=== PATIENT | male | born 1960 | race Caucasian/White ===

== ENCOUNTER 2019-11-19 07:40 | Outpatient (CLI) | payer OTHER, SELFPAY ==
[2019-11-19 08:18] LABS: Alanine Aminotransferase 85 U/L (4-50); Albumin Level 4.4 g/dL (3.5-5.1); Alkaline Phosphatase 63 U/L (38-126); Aspartate Amino Transferase 51 U/L (17-59); Bilirubin,Total 0.8 mg/dL (0.2-1.3); Blood Urea Nitrogen 22 mg/dL (9-20); Calcium 8.9 mg/dL (8.4-10.2); Carbon Dioxide 24 mmol/L (22-30); Chloride 105 mmol/L (98-107); Cholesterol 171 mg/dL (0-200); Estimated Glomerular Filt Rate > 60; Glucose 129 mg/dL (75-110); HDL Direct 34 mg/dL; Potassium 3.8 mmol/L (3.4-5.0); Sodium 138 mmol/L (137-145); Triglycerides 147 mg/dL (<150)
[2019-11-19 08:29] LABS: LDL Cholesterol Direct 94 mg/dL
[2019-11-19 08:57] LABS: Hemoglobin A1C 5.9 % (<5.7)
== END 2019-11-19 07:41 | disposition home or self-care (01) ==
PROVIDERS: PCP Internal Medicine; Visit Provider Internal Medicine
DX: E78.5 Hyperlipidemia, unspecified (principal); I10 Essential (primary) hypertension; K76.0 Fatty (change of) liver, not elsewhere classified; E11.9 Type 2 diabetes mellitus without complications
CPT/HCPCS: 36415; 80053; 80061; 83036

== ENCOUNTER 2020-06-23 08:25 | Outpatient (CLI) | payer OTHER, SELFPAY ==
--- NOTE | ~2020-06-23 | XR_ITS ---
EXAMINATION: XR knee LT 3V DATE: 06/23/2020 11:17 INDICATION: Left knee pain. TECHNIQUE: 3 views of left knee were obtained. COMPARISON: Left knee radiographs 05/29/2018 FINDINGS: Bone alignment is normal. No fracture. There is mild tricompartmental osteoarthritis. There is a small knee joint effusion. IMPRESSION: 1. Mild left knee osteoarthritis. 2. Small left knee joint effusion. Reviewed, dictated and finalized at location A. ECTIONAL TREATMENT SPECIALIST
--- NOTE | ~2020-06-23 | XR_ITS ---
EXAMINATION: XR knee RT 3V DATE: 06/23/2020 11:17 INDICATION: Right knee pain. TECHNIQUE: 3 views of right knee were obtained. COMPARISON: None. FINDINGS: Bone alignment is normal. No fracture. There is mild osteoarthritis of medial and patellofe moral compartments. There is a small knee joint effusion. IMPRESSION: 1. Mild right knee osteoarthritis. 2. Small right knee joint effusion. Reviewed, dictated and finalized at location A. SITIONS RN CARE COORDINATOR
[2020-06-23 08:58] LABS: Alanine Aminotransferase 64 U/L (4-50); Albumin Level 4.3 g/dL (3.5-5.1); Alkaline Phosphatase 59 U/L (38-126); Anion Gap 6 mmol/L (8-16); Aspartate Amino Transferase 40 U/L (17-59); Bilirubin,Total 0.7 mg/dL (0.2-1.3); Blood Urea Nitrogen 17 mg/dL (9-20); Calcium 8.9 mg/dL (8.4-10.2); Carbon Dioxide 28 mmol/L (22-30); Chloride 107 mmol/L (98-107); Cholesterol 178 mg/dL (0-200); Estimated Glomerular Filt Rate > 60; Glucose 116 mg/dL (75-110); HDL Direct 38 mg/dL; Potassium 4.6 mmol/L (3.4-5.0); Sodium 141 mmol/L (137-145); Triglycerides 162 mg/dL (<150)
[2020-06-23 09:09] LABS: LDL Cholesterol Direct 98 mg/dL
[2020-06-23 11:49] LABS: Hemoglobin A1C 5.5 % (<5.7)
== END 2020-06-23 08:26 | disposition home or self-care (01) ==
PROVIDERS: PCP Internal Medicine; Visit Provider Nurse Practitioner
DX: M25.569 Pain in unspecified knee (principal); G89.29 Other chronic pain; E78.00 Pure hypercholesterolemia, unspecified; R73.9 Hyperglycemia, unspecified
CPT/HCPCS: 36415; 73562; 80053; 80061; 83036

== ENCOUNTER 2021-01-24 11:52 | Outpatient (CLI) | payer OTHER, SELFPAY ==
[2021-01-24 12:29] LABS: Alanine Aminotransferase 90 U/L (4-50); Albumin Level 4.6 g/dL (3.5-5.1); Alkaline Phosphatase 64 U/L (38-126); Anion Gap 8 mmol/L (8-16); Aspartate Amino Transferase 49 U/L (17-59); Bilirubin,Total 0.8 mg/dL (0.2-1.3); Blood Urea Nitrogen 18 mg/dL (9-20); Calcium 9.2 mg/dL (8.4-10.2); Carbon Dioxide 26 mmol/L (22-30); Chloride 108 mmol/L (98-107); Cholesterol 191 mg/dL (0-200); Estimated Glomerular Filt Rate > 60; Glucose 100 mg/dL (65-110); HDL Direct 40 mg/dL; Potassium 4.2 mmol/L (3.4-5.0); Sodium 142 mmol/L (137-145); Triglycerides 218 mg/dL (<150)
[2021-01-24 12:32] LABS: Hemoglobin A1C 5.7 % (<5.7)
[2021-01-24 12:40] LABS: LDL Cholesterol Direct 89 mg/dL
[2021-01-24 12:59] LABS: Prostate Specific Antigen 31.5 ng/mL (< OR = 4.0)
== END 2021-01-24 11:53 | disposition home or self-care (01) ==
PROVIDERS: PCP Internal Medicine; Visit Provider Internal Medicine
DX: Z12.5 Encounter for screening for malignant neoplasm of prostate (principal); K76.0 Fatty (change of) liver, not elsewhere classified; R73.9 Hyperglycemia, unspecified; E78.5 Hyperlipidemia, unspecified
CPT/HCPCS: 36415; 80053; 80061; 83036; 84153; G0103

== ENCOUNTER → 2021-03-20 04:03 | Outpatient (CLI) | payer OTHER, SELFPAY ==
[2021-03-20 17:24] LABS: SARS-CoV-2 RNA PCR Negative
== END ==
PROVIDERS: PCP Internal Medicine; Visit Provider Internal Medicine Gastroenterology
DX: Z01.812 Encounter for preprocedural laboratory examination (principal); Z20.822 Contact with and (suspected) exposure to COVID-19
CPT/HCPCS: C9803; U0003; U0005

== ENCOUNTER 2021-03-23 02:00 | Day surgery (SDC) | payer OTHER, SELFPAY ==
[2021-03-09 13:15] VITALS: BMI 30.8
[2021-03-23 06:17] VITALS: BP 140/86; PULSE 70; RESP 18; TEMP 35.8; O2SAT 98
[2021-03-23] MEDS: LACTATED RINGERS 1,000 ML 150 ML IV CONT (06:25)
--- NOTE | 2021-03-23 06:47 | WPDANESEPPF ---
Anes - Initial Pre Proc Eval Procedure: Operation Date: 03/23/21 07:30 Proposed Procedures p Screening Colonoscopy - Howie Brown MD Date/Time: 03/23/21 06:47 Surgeon: Howie Brown MD Pre Op Diagnosis: hx of colon polyps Patient Data Age: 60 Gender: M Height: 1.85 m Weight: 105.3 kg Last Vital Signs Temp 35.8 C L 03/23/21 06:17 Pulse 70 03/23/21 06:17 Resp 18 03/23/21 06:17 BP 140/86 03/23/21 06:17 Pulse Ox 98 03/23/21 06:17 Allergies Allergy/AdvReac Type Severity Reaction Status Date / Time No Known Allergies Allergy Mild Verified 03/23/21 06:15 Home Medications Medication Instructions Recorded Confirmed Type etodolac 400 mg tablet 400 mg PO BID #180 tablet 01/26/21 03/23/21 Rx Patient hx anesthesia problems: none Family hx anesthesia problems: none Results Review: All pre-operative results and documents have been reviewed as part of the pre-operative evaluation. [facility] Past Medical History Medical History Benign prostatic hyperplasia without lower urinary tract symptoms Bilateral hearing loss Elevated PSA Essential (primary) hypertension Fatty (change of) liver, not elsewhere classified Hearing loss Hyperglycemia Knee joint effusion Knee pain, chronic Left knee DJD Patellar tendinitis of left knee Pure hypercholesterolemia Right knee DJD Type 2 diabetes mellitus without complication, without long-term current use of insulin Wears glasses Surgical History Surgical History History of ear surgery 1979' History of umbilical hernia repair 1959 Family History Family History Mother Family history of malignant neoplasm of breast in first degree relative Sibling Patient's sister is in good health Patient's brother is in good health Father Patient's father is Social History Social History Smoking packs per day: 1 Smoking cigarettes per day: 20.0 Years smoked: 23 Smoking pack-years: 23.00 Smoking status: Former smoker Tobacco type: cigarettes Smoking end date: 05/16/05 Alcohol intake: current Drinks per week: 1 Substance use: never Substance use type: does not use Living arrangements: with family Gender identity (if verbalized by the patient): Male Spiritual care concerns: No Anes - Eval Final PreProcedure Day of Procedure 03/23/21 06:47 Patient weight: obese Heart: regular rate and rhythm Lungs: clear to auscultation Airway: Mallampati scale class II Neurological: alert and oriented Last oral intake: >/= 8 hours ASA classification: III Emergent: no Anesthetic plan: proceed Anesthesia type and monitoring: general Results Review: All pre-operative results and documents have been reviewed as part of the pre-operative evaluation. Informed Consent: The patient's anesthetic plan and its attendant risks and benefits were discussed with the patient/family/POA. Questions were solicited and answers provided to the satisfaction of the patient/family/POA.
--- NOTE | 2021-03-23 07:21 | WPDGICN ---
Assessment and Plan Assessment and plan (1) History of colon polyps: Code(s): Z86.010 - Personal history of colonic polyps Status: Acute Assessment and Plan: Patient has a prior history of colon polyps. Last colonoscopy 2014. Plan is for surveillance colonoscopy now and at 5 year intervals in the future. GI Consult Note Consult date/time: 03/23/21 07:21 HPI: Rolf Freitas is a 60 year old male Presents for screening colonoscopy. Patient has a prior history of colon polyps previous colonoscopy 2014 and 2005. Patient states that his current weight and appetite are normal. He denies abdominal pain. He has had no bleeding. Family history is noncontributory. Review of Systems Review of Systems: All systems reviewed & are unremarkable except as noted in HPI and below PMFSH Past Medical History Medical History Benign prostatic hyperplasia without lower urinary tract symptoms Bilateral hearing loss Elevated PSA Essential (primary) hypertension Fatty (change of) liver, not elsewhere classified Hearing loss Hyperglycemia Knee joint effusion Knee pain, chronic Left knee DJD Patellar tendinitis of left knee Pure hypercholesterolemia Right knee DJD Type 2 diabetes mellitus without complication, without long-term current use of insulin Wears glasses Surgical History Surgical History History of ear surgery History of umbilical hernia repair 1959 Family History Family History Mother Family history of malignant neoplasm of breast in first degree relative Sibling Patient's sister is in good health Patient's brother is in good health Father Patient's father is Social History Social History Smoking packs per day: 1 Smoking cigarettes per day: 20.0 Years smoked: 23 Smoking pack-years: 23.00 Smoking status: Former smoker Tobacco type: cigarettes Smoking end date: 05/16/05 Alcohol intake: current Drinks per week: 1 Substance use: never Substance use type: does not use Living arrangements: with family Gender identity (if verbalized by the patient): Male Spiritual care concerns: No Meds Home Medications and Allergies Home Medications Medication Instructions Recorded Confirmed Type etodolac 400 mg tablet 400 mg PO BID #180 tablet 01/26/21 03/23/21 Rx Allergies Allergy/AdvReac Type Severity Reaction Status Date / Time No Known Allergies Allergy Mild Verified 03/23/21 06:15 Vital Signs Vital Signs - 24 hr 03/23/21 06:17 Temperature 96.4 F L Pulse Rate 70 Respiratory Rate 18 Blood Pressure 140/86 Pulse Oximetry 98 Exam Narrative: Physical exam reveals patient be alert. Vital signs stable. HEENT exam is unremarkable. Patient is anicteric. Lungs are clear to auscultation and percussion. Heart is without murmur. Abdomen bowel sounds present soft nontender with no organomegaly. Digital external rectal exam normal.
[2021-03-23 07:52] VITALS: BP 118/82; PULSE 61; RESP 18; O2SAT 96
[2021-03-23 08:02] VITALS: BP 117/79; PULSE 63; RESP 18; O2SAT 99
[2021-03-23 08:08] VITALS: BP 107/77; PULSE 64; RESP 18; O2SAT 96
== END 2021-03-23 08:22 | disposition home or self-care (01) ==
PROVIDERS: PCP Internal Medicine; Visit Provider Internal Medicine Gastroenterology
PROC: 0DJD8ZZ Inspection of Lower Intestinal Tract, Via Natural or Artificial Opening Endoscopic (ICD-10-PCS; CPT 45378; principal; 2021-03-23 07:30)
DX: Z12.11 Encounter for screening for malignant neoplasm of colon (principal); D12.2 Benign neoplasm of ascending colon; D12.4 Benign neoplasm of descending colon; K63.5 Polyp of colon; I10 Essential (primary) hypertension; K76.0 Fatty (change of) liver, not elsewhere classified; E78.00 Pure hypercholesterolemia, unspecified; E11.9 Type 2 diabetes mellitus without complications; N40.0 Benign prostatic hyperplasia without lower urinary tract symptoms; Z87.891 Personal history of nicotine dependence; E66.9 Obesity, unspecified; Z68.30 Body mass index [BMI] 30.0-30.9, adult; K64.8 Other hemorrhoids; K57.30 Diverticulosis of large intestine without perforation or abscess without bleeding
CPT/HCPCS: 45385; 88305; C9803; J2704; J7120; U0003; U0005

== ENCOUNTER 2021-06-19 09:27 | Outpatient (CLI) | payer OTHER, SELFPAY ==
--- NOTE | ~2021-06-19 | XR_ITS ---
XR chest 2V DATE: 06/19/2021 09:49 INDICATION: Cough. History of Covid infection. TECHNIQUE: PA and lateral views COMPARISON: None FINDINGS: Normal heart size. No hilar or mediastinal enlargement. No pleural effusion or pneumothorax . There are scattered bilateral mid and lower lung mild patchy infiltrates. There is mild levoscoliosis of the upper thoracic spine. Included skeletal structures are otherwise u nremarkable. IMPRESSION: Scattered mild patchy bilateral mid and lower lung infiltrates which may be due to mild b ilateral pneumonia Reviewed, dictated and finalized at location B. OGY TUTOR IMPRESSION: Scattered mild patchy bilateral mid and lower lung infiltrates whic h may be due to mild bilateral pneumonia
== END 2021-06-19 09:28 | disposition home or self-care (01) ==
PROVIDERS: PCP Internal Medicine; Visit Provider Internal Medicine
DX: R05.9 Cough, unspecified (principal); M41.9 Scoliosis, unspecified
CPT/HCPCS: 71046

== ENCOUNTER 2021-07-20 09:53 | Outpatient (CLI) | payer OTHER, SELFPAY ==
--- NOTE | 2021-07-20 08:33 | EST_ITS ---
Patient Info Name: Rolf Freitas Age: 60 years : 1960 Gender: Male Ht: 73 in Wt: 226 lbs BSA: 2.32 m2 Technical Quality: Good Exam Date: 07/20/2021 9:07 AM Exam Location: [facility] Pulmonary Patient Status: Outpatient Admit Date: 07/20/2021 Staff Ordering Physician: Bandar Carrillo DO Continuity Writer: Carolyn Mcclellan RDCS Attending Provider: DR. PELLETIER Referring Physician: Lorena FERRARO; Exercise Technologist: Chasity Hutchins CT Exercise Physician: Nikko Pelletier DO Exam Type: CA stress echo Study Info Indications R07.9 - Chest pain, unspecified Treadmill exercise stress echocardiogram is performed. Summary 1. 1. Negative Cristofer exercise stress test for ischemic ST changes by ECG criteria. 2. 2. Good functional capacity, achieving 10 METs of workload. 3. 3. Baseline hypertension. 4. 4. Appropriate HR response to exercise. 5. 5. Appropriate HR recovery at 1 minute post exercise. 6. 6. Negative stress echocardiogram for ischemia by wall motion analysis. 7. 7. Patient informed of the above results. Stress Echo Findings Left Ventricle Appropriate increase in LV endocardial thickening with systole. Appropriate augmentation of contractility with systole. No wall motion abnormality. Left Ventricle Normal LV systolic function, no wall motion abnormality. Protocol: Cristofer Stress ECG Details Stage: REST Duration (min): 0 min : 51 sec Speed (mph): 0.0 Grade (%): 0 HR (bpm): 76 SBP (mmHg): 146 DBP (mmHg): 99 METS: --- Stage: REST Duration (min): 21 min : 59 sec Speed (mph): 0.0 Grade (%): 0 HR (bpm): 79 SBP (mmHg): 146 DBP (mmHg): 99 METS: --- Stage: STAGE 1 Duration (min): 1 min : 0 sec Speed (mph): 1.7 Grade (%): 10 HR (bpm): 95 SBP (mmHg): 146 DBP (mmHg): 99 METS: --- Stage: STAGE 1 Duration (min): 2 min : 0 sec Speed (mph): 1.7 Grade (%): 10 HR (bpm): 97 SBP (mmHg): 146 DBP (mmHg): 99 METS: --- Stage: STAGE 1 Duration (min): 3 min : 0 sec Speed (mph): 1.7 Grade (%): 10 HR (bpm): 100 SBP (mmHg): 148 DBP (mmHg): 83 METS: --- Stage: STAGE 2 Duration (min): 1 min : 0 sec Speed (mph): 2.5 Grade (%): 12 HR (bpm): 106 SBP (mmHg): 148 DBP (mmHg): 83 METS: --- Stage: STAGE 2 Duration (min): 2 min : 0 sec Speed (mph): 2.5 Grade (%): 12 HR (bpm): 111 SBP (mmHg): 147 DBP (mmHg): 80 METS: --- Stage: STAGE 2 Duration (min): 3 min : 0 sec Speed (mph): 2.5 Grade (%): 12 HR (bpm): 114 SBP (mmHg): 147 DBP (mmHg): 80 METS: --- Stage: STAGE 3 Duration (min): 1 min : 0 sec Speed (mph): 3.4 Grade (%): 14 HR (bpm): 125 SBP (mmHg): 151 DBP (mmHg): 83 METS: --- Stage: STAGE 3 Duration (min): 2 min : 0 sec Speed (mph): 3.4 Grade (%): 14 HR (bpm): 134 SBP (mmHg): 151 DBP (mmHg): 83 METS: --- Stage: STAGE 3 Duration (min): 3 min : 0 sec
[2021-07-20 10:23] LABS: Alanine Aminotransferase 46 U/L (4-50); Albumin Level 4.8 g/dL (3.5-5.1); Alkaline Phosphatase 66 U/L (38-126); Anion Gap 12 mmol/L (8-16); Aspartate Amino Transferase 38 U/L (17-59); Bilirubin,Total 0.7 mg/dL (0.2-1.3); Blood Urea Nitrogen 14 mg/dL (9-20); Calcium 9.1 mg/dL (8.4-10.2); Carbon Dioxide 23 mmol/L (22-30); Chloride 105 mmol/L (98-107); Cholesterol 191 mg/dL (0-200); Estimated Glomerular Filt Rate > 60; Glucose 134 mg/dL (65-110); HDL Direct 38 mg/dL; Hemoglobin A1C 5.3 % (<5.7); Potassium 4.6 mmol/L (3.4-5.0); Sodium 140 mmol/L (137-145); Triglycerides 179 mg/dL (<150)
[2021-07-20 10:34] LABS: LDL Cholesterol Direct 95 mg/dL
== END 2021-07-20 09:54 | disposition home or self-care (01) ==
PROVIDERS: PCP Internal Medicine; Visit Provider Internal Medicine
DX: R07.89 Other chest pain (principal); R73.03 Prediabetes; I10 Essential (primary) hypertension; K76.0 Fatty (change of) liver, not elsewhere classified; E78.5 Hyperlipidemia, unspecified
CPT/HCPCS: 36415; 80053; 80061; 83036; 93351

== ENCOUNTER 2021-08-17 14:40 | Outpatient (CLI) | payer OTHER, SELFPAY ==
--- NOTE | ~2021-08-17 | PE_ITS ---
EXAMINATION: PET_PETPSMAST_PT DATE: 08/17/2021 17:18 INDICATION: Prostate cancer TECHNIQUE: 9.142 mCi of pipflufolastat F-18 (18-F-DCFPyL) was administered i.v. Low dose computed to mography (CT) images were acquired from the base of the brain to the proximal thighs for attenuation correction and anatomic localization. Positron emission tomography (PET) images were acquired in the same distribution beginning 67 minutes after injection. COMPARISON: None FINDINGS: Head/neck: Typical pattern of symmetric physiologic increased activity in the lacrimal, parotid and s ubmandibular glands levels on the mucosa of the oropharynx and nasopharynx. No pathologically enlarge d cervical lymphadenopathy or suspicious foci of increased uptake in the visualized head or neck. Chest: Mild emphysema. Mild dependent atelectasis as well as a band of more linear discoid atelectasis at th e lingula. No suspicious pulmonary nodules, pneumonia or other pulmonary infiltrates or pleural effus ion. Heart size is normal. No pericardial effusion. Thoracic aorta is normal in caliber. A couple uli cified mediastinal lymph nodes consistent with old granulomatous disease. Minimal likely salivary act ivity extending along the esophagus. No pathologically enlarged lymphadenopathy or abnormal PSMA avid lesions in the thorax. Abdomen/pelvis/proximal thighs: Physiologic renal accumulation and excretion of FDG activity in the kidneys, bladder and along portio ns of ureters. Normal degree and heterogenous pattern of increased uptake throughout the liver and sp guille without radiologic correlate or dominant PSMA avid lesion. The gallbladder, pancreas, and bilate ral adrenal glands are normal. Moderate uptake scattered throughout the segments of the bowels most p rominent in the duodenum without radiologic correlate, also likely physiologic. Relatively intense PS MA uptake in the prostate with 2 epicenters likely within the transitional zone more cephalad on the right with maximal SUV of 15.0 and more caudally on the left with maximal SUV of 14.8. There is an ad ditional small focus of increased activity at the medial aspect of the left seminal vesicle with maxi mal SUV of 11.8 without clearly evident radiologic correlate suspicious for local invasion. No other abnormal foci of increased PSMA uptake or pathologically enlarged lymphadenopathy in the abdomen, pel vis or proximal thighs. Musculoskeletal: No suspicious lytic, blastic or PSMA avid bone lesions identified. IMPRESSION: 1. Relatively intense increased uptake in the prostate consistent with primary prostate cancer with l randalely local invasion in the medial aspect of the left seminal vesicle. No evident more widespread met astatic disease. Reviewed, dictated and finalized at location B. IMPRESSION: 1. Relatively intense increased uptake in the prostate consistent with primary prostate cancer with likely local invasion in the medial aspect of the left kaci inal vesicle. No evident more widespread metastatic disease.
== END 2021-08-17 14:41 | disposition home or self-care (01) ==
LOC: ANHIMG 14:41
PROVIDERS: PCP Internal Medicine; Visit Provider Nurse Practitioner Adult Health
DX: C61 Malignant neoplasm of prostate (principal)
CPT/HCPCS: 78815; A9595

== ENCOUNTER 2021-10-19 09:50 | Outpatient (CLI) | payer OTHER, SELFPAY ==
--- NOTE | ~2021-10-19 | XR_ITS ---
EXAMINATION: XR chest 2V 10/19/2021 12:03 INDICATION: Malignant neoplasm of the prostate. PROCEDURE: 2 view chest COMPARISON: 06/19/2021 FINDINGS: The lungs are clear. The cardiomediastinal silhouette is within normal limits. There are no pleural effusions. There is no pneumothorax suspected. IMPRESSION: 1: NO ACUTE CARDIOPULMONARY DISEASE. Reviewed, dictated and finalized at location B.
[2021-10-19 12:14] LABS: Basophils Percent Auto 0.7 % (0.2-1.2); Eosinophils Absolute Auto 0.1 K/mm3 (0-0.3); Eosinophils Percent Auto 2.1 % (0-4.4); Hematocrit 46.5 % (42.0-52.0); Hemoglobin 16.5 g/dL (14.0-18.0); Immature Granulocyte Absolute 0.02 K/mm3 (0.00-0.031); Immature Granulocyte Percent A 0.3 % (0-0.5); Lymphocytes Absolute Auto 2.15 K/mm3 (0.9-3.2); Lymphocytes Percent Auto 35.5 % (18.3-44.2); Mean Corpuscular HGB Conc 35.5 g/dl (32-36); Mean Corpuscular Hemoglobin 31.5 pg (26-34); Mean Corpuscular Volume 88.9 fl (80-100); Mean Platelet Volume 9.7 fl (7.4-10.4); Monocytes Absolute Auto 0.5 K/mm3 (0.1-0.6); Monocytes Percent Auto 8.9 % (2.6-8.5); Neutrophils Absolute Auto 3.2 K/mm3 (1.3-6.7); Neutrophils Percent Auto 52.5 % (45.5-73.1); Platelet Count Result 170 k/mm3 (150-375); Red Blood Count 5.23 M/mm3 (4.6-6.20); Red Cell Distribution Width 12.9 % (11.5-14.5); White Blood Count 6.1 K/mm3 (4.5-10.0)
[2021-10-19 12:24] LABS: Appearance Urine Clear (Clear); Bilirubin Urine Negative (Negative); Blood Urine Negative (Negative); Color Urine Yellow (Yellow); Glucose Urine UA Negative (Negative); Ketones Urine Negative (Negative); Leukocyte Esterase Ur Negative LEU/UL (Negative); Nitrate Urine Negative (Negative); Protein Urine Trace mg/dL (Negative); Specific Grav Ur >= 1.030 (1.001-1.035); Urobilinogen Urine 0.2 mg/dL (<2.0); pH Urine 5.5 (5.0-9.0)
[2021-10-19 12:26] LABS: Prothrombin Time 13.1 Seconds (11.1-14.7)
[2021-10-19 12:27] LABS: Partial Thromboplastin Time 31.9 SECONDS (22.3-36.8)
[2021-10-19 12:30] LABS: Bacteria Urine Trace /hpf; Mucus Urine Few /lpf; WBC Urine 0-3 /hpf
[2021-10-19 12:32] LABS: Add Urine Microscopic? YES
[2021-10-19 12:40] LABS: Alanine Aminotransferase 63 U/L (6-50); Alkaline Phosphatase 63 U/L (38-126); Anion Gap 9 mmol/L (8-16); Aspartate Amino Transferase 38 U/L (17-59); Blood Urea Nitrogen 22 mg/dL (9-20); Calcium 9.3 mg/dL (8.4-10.2); Carbon Dioxide 28 mmol/L (22-30); Chloride 104 mmol/L (98-107); Estimated Glomerular Filt Rate > 60; Glucose 108 mg/dL (65-110); Potassium 4.3 mmol/L (3.4-5.0); Sodium 141 mmol/L (137-145)
== END 2021-10-19 09:51 | disposition home or self-care (01) ==
PROVIDERS: PCP Internal Medicine; Visit Provider Urology
DX: C61 Malignant neoplasm of prostate (principal); Z01.818 Encounter for other preprocedural examination
CPT/HCPCS: 36415; 71046; 80053; 81001; 85025; 85610; 85730

== ENCOUNTER 2021-11-05 00:25 | Day surgery (SDC) | payer OTHER, SELFPAY ==
--- NOTE | 2021-10-05 07:54 | PM.IMHP ---
H&P: HPI History of Present Illness Date/Time: 10/05/21 07:54 Patient is a 61-year-old male we have followed for several years with an elevated PSA. He underwent prostate biopsy in September 2018 that was unremarkable. Because a PSA progression and an abnormal MRI of the prostate he recently underwent rebiopsy and was found to have Chitra 8 adenocarcinoma 6,7,8 and 9 in 7/14 cores (including 2 regions of interest on MRI). Staging PET scan reveals uptake in the prostate and possibly in the left seminal vesicle. We have had long discussions and careful consideration about the therapeutic options including active surveillance, androgen ablation, radiation therapy in its various forms and radical prostatectomy. He has opted for the latter Understanding the risks including, but not limited to, and a persistent cancer, need for adjuvant therapy, rectal injury, urinary incontinence, erectile dysfunction. He is also aware that there is a chance we may not be able to complete this surgery given the concerns of invasion into the seminal vesicle. We have started him on preoperative adjuvant androgen deprivation. Chief Complaint: Prostate cancer Review of Systems Cardiovascular: Cardiovascular: Denies chest pain, Denies lightheadedness, Denies palpitations and Denies dyspnea Respiratory: Respiratory: Denies dyspnea Gastrointestinal: Gastrointestinal: Denies diarrhea, Denies nausea and Denies vomiting Genitourinary: Genitourinary: Denies hematuria and Denies dysuria Endocrine: Endocrine: Denies palpitations PMFSH Past Medical History Medical History Benign prostatic hyperplasia without lower urinary tract symptoms Bilateral hearing loss Cancer of prostate with intermediate recurrence risk, stage T2B-C or Chitra 7 or prostate-specific antigen (PSA) 10-20 Elevated PSA Essential (primary) hypertension Fatty (change of) liver, not elsewhere classified Hearing loss Hyperglycemia Knee joint effusion Knee pain, chronic Left knee DJD Patellar tendinitis of left knee Pure hypercholesterolemia Right knee DJD Type 2 diabetes mellitus without complication, without long-term current use of insulin Wears glasses Surgical History Surgical History History of ear surgery 1979's History of umbilical hernia repair 1960 Family History Family History Mother Family history of malignant neoplasm of breast in first degree relative Sibling Patient's sister is in good health Patient's brother is in good health Father Patient's father is Social History Social History Smoking packs per day: 1 Smoking cigarettes per day: 20.0 Years smoked: 23 Smoking pack-years: 23.00 Smoking status: Former smoker Tobacco type: cigarettes Smoking end date: 05/16/05 Alcohol intake: current Drinks per week: 1 Substance use: never Substance use type: does not use Gender identity (if verbalized by the patient): Male Spiritual care concerns: No Meds Home Medications and Allergies Home Medications Medication Instructions Recorded Confirmed Type etodolac 400 mg tablet 400 mg PO BID #180 tablet 01/26/21 07/27/21 Rx Allergies Allergy/AdvReac Type Severity Reaction Status Date / Time No Known Allergies Allergy Mild Verified 07/27/21 07:59 Exam Const: General: no acute distress Resp: Effort & Inspection: normal respiratory effort GI: Inspection: non-distended GI Palp: No abdominal tenderness and No Guarding due to palpation present (GI) Auscultation: normal bowel sounds Assessment and Plan Assessment and plan (1) Prostate cancer: Code(s): C61 - Malignant neoplasm of prostate Status: Acute Assessment and Plan: Robotic assisted radical prostatectomy with bi
[2021-10-19 10:51] VITALS: BMI 31.2
--- NOTE | 2021-10-19 11:11 | PC.NURSE ---
Report to the Outpatient Waiting Room, entrance under the green pavilion located off [facility], at time _0600 on date _11/05/21 . OR Time: __729 . - You and your visitor will be asked a series of questions to screen for COVID 19 for your protection. - Only one visitor is allowed at this time. - The patient visitor is requested to leave or wait in car when not with patient. - A mask is required within the hospital. Patients may have clear liquids (water, carbonated beverages, clear teas, apple juice) until 3 hours prior to surgery with a maximum of 20 ounces. - No food from midnight until time of surgery - Infants may have breast milk until 4 hours before surgery, infant formula 6 hours prior to surgery. - Children will be allowed to drink immediately following surgery. If applicable, please bring a bottle or sippy cup to assist with drinking. Juice, water, soda, and popsicles are readily available. For infants on formula, please bring formula the day of surgery. Pacifiers are allowed. Take the following medications with a SIP of water the morning of surgery: ___NONE Medications to discontinue per physician ___ETODOLAC PER DR GAGE Date to take last dose Please no make-up, nail arabic, hairspray, perfume, deodorant, or body powder the day of surgery. No jewelry (including any body piercings) or valuables the day of surgery, leave them at home. Please take a shower or bath the night before, or the morning of, surgery with an antibacterial soap. Wear comfortable, loose fitting clothing. Children are encouraged to wear pajamas. - Jewelry must be removed prior to entering the operating room. Rings and piercings that are not removed may be cut off. - The hospital will not accept responsibility for valuables. - Please leave all valuables, including medications, at home the day of surgery. BOWEL PREP PER DR GAGE If you are going home after surgery, a licensed carrier driver must drive you home. - NO public transportation without another adult. - We recommend that an adult stay with you for 24 hours following discharge. - We also recommend that you do not drive, make important decision, drink alcoholic beverages, or take any drugs that were not prescribed by your health care provider for at least 24 hours after your discharge time. For Pediatric surgeries, we recommend two adults accompany the child home (only one inside the building at this time). Follow any additional instructions given to you from your surgeon. If you or anyone in your household have experienced Covid symptoms in the past week, please notify your surgeon or the nurse liaison at the phone number below for possible testing. VERBAL AND WRITTEN instructions given to ____PATIENT and asked if any additional questions and then verbalized understanding. Patient advised to call surgeon office or pre surgery nurse liaison [phone] if any additional questions.
[2021-10-19 11:26] VITALS: BP 135/88; PULSE 65; RESP 18; TEMP 36.8; O2SAT 97
--- NOTE | 2021-11-04 13:27 | WPDANESEPPF ---
Anes - Initial Pre Proc Eval Procedure: Operation Date: 11/05/21 07:30 Proposed Procedures p Robotic Assisted Laparoscopic Prostatectomy with Bilateral Pelvic Lymph Node Dissection - James Maldonado MD Date/Time: 11/04/21 13:27 Surgeon: James Maldonado MD Pre Op Diagnosis: prostate cancer Patient Data Age: 61 Gender: M Height: 1.85 m Weight: 107.4 kg Last Vital Signs Temp 36.8 C 10/19/21 11:26 Pulse 65 10/19/21 11:26 Resp 18 10/19/21 11:26 BP 135/88 10/19/21 11:26 Pulse Ox 97 10/19/21 11:26 O2 Del Method Room Air 10/19/21 11:26 Allergies Allergy/AdvReac Type Severity Reaction Status Date / Time No Known Allergies Allergy Mild Verified 11/05/21 06:24 Home Medications Medication Instructions Recorded Confirmed Type etodolac 400 mg tablet 400 mg PO PRN PRN Pain 10/19/21 10/19/21 History Patient hx anesthesia problems: none Family hx anesthesia problems: none Results Review: All pre-operative results and documents have been reviewed as part of the pre-operative evaluation. [facility] Past Medical History Medical History (Updated 11/05/21 @ 07:11 by Julio César Holt, ) Benign prostatic hyperplasia without lower urinary tract symptoms Bilateral hearing loss Cancer of prostate with intermediate recurrence risk, stage T2B-C or Chitra 7 or prostate-specific antigen (PSA) 10-20 Elevated PSA Fatty (change of) liver, not elsewhere classified Hearing loss Hyperglycemia Knee joint effusion Knee pain, chronic Left knee DJD Patellar tendinitis of left knee Prostate cancer Pure hypercholesterolemia Right knee DJD Wears glasses Surgical History Surgical History History of ear surgery 1979' History of umbilical hernia repair 1960 Family History Family History Mother Family history of malignant neoplasm of breast in first degree relative Sibling Patient's sister is in good health Patient's brother is in good health Father Patient's father is Social History Social History Smoking packs per day: 1 Smoking cigarettes per day: 20.0 Years smoked: 23 Smoking pack-years: 23.00 Smoking status: Former smoker Tobacco type: cigarettes Smoking end date: 05/16/05 Alcohol intake: current Drinks per week: 2 Alcohol use details: BEER Substance use: never Substance use type: does not use Living arrangements: with family Gender identity (if verbalized by the patient): Male Spiritual care concerns: No Anes - Eval Final PreProcedure Day of Procedure 11/04/21 13:27 Patient weight: obese Heart: regular rate and rhythm Lungs: clear to auscultation Airway: Mallampati scale class II Neurological: alert and oriented Last oral intake: >/= 8 hours ASA classification: III Emergent: no Anesthetic plan: proceed Anesthesia type and monitoring: general ETT and standard monitoring Results Review: All pre-operative results and documents have been reviewed as part of the pre-operative evaluation. Informed Consent: The patient's anesthetic plan and its attendant risks and benefits were discussed with the patient/family/POA. Questions were solicited and answers provided to the satisfaction of the patient/family/POA.
[2021-11-05] VITALS (17 sets, daily range): BP systolic 97–136; BP diastolic 56–83; PULSE 62–98; RESP 14–22; TEMP 35.5–36.6; O2SAT 92–100
--- NOTE | 2021-11-05 06:23 | WPDHPUPDATE1 ---
History and Physical Update Update Date/Time: 11/05/21 06:23 History and Physical has been reviewed, including an updated exam of the patient. There are NO changes in the patient's condition. Risks, benefits, and alternatives have been discussed and questions answered. Patient agrees to proceed with procedure.
[2021-11-05] MEDS: LACTATED RINGERS 1,000 ML 30 ML IV CONT ×2 (07:20→11:37)
[2021-11-05] MEDS: ceFAZolin 2 GM/D5W 50 ML 2 GM/50 ML BAG IVPB (07:37)
--- NOTE | 2021-11-05 11:33 | W.PM.PROC2 ---
Procedure Note - Detailed Date of Procedure 11/05/21 Pre-op Diagnosis Prostate cancer Post-op Diagnosis Same Procedure Performed Robotic-assisted radical prostatectomy, bilateral pelvic lymphadenectomy Surgeon James Maldonado MD Steamfitter Apprentice Yadira VERGARA Description of Procedure The patient was brought to the operative suite, where he was prepped and draped in routine sterile fashion while in a dorsal lithotomy, deep Trendelenburg position. A supraumbilical 10 mm trocar was placed after insufflation of the abdomen with a Veress needle. Three robotic ports were then placed under direct vision. Two of these were placed in the right lower quadrant - 10 cm and 20 cm lateral to, and in line with, the umbilicus. A third robotic trocar was placed 10 cm to the left of the umbilicus, and 20 cm to the left of the umbilicus, a 12 mm standard laparoscopic trocar was placed to be used as an assistant superintendent port. Lastly, a 5 mm trocar was placed in the left upper quadrant midway between the umbilicus and the left robotic trocar. Attention was then turned to the prostatectomy. I opted for a posterior approach in this patient. An incision was made in the parietal peritoneum along the posterior bladder/posterior prostate about 2 cm above the reflection of the peritoneum over the anterior rectum. The seminal vesicles and vas deferens were immediately identified. Dissection is undertaken in a fashion so as to avoid electrocautery as much as possible, particularly near the tips of the seminal vesicles. Dissection was also carried out in the midline so as to avoid any encounters with the ureters. The vas deferens and the seminal vesicles were dissected in their entirety to the base of the prostate. The plane anterior to Denoviller's fascia, anterior to the rectum and posterior to the prostate was then developed. I then dropped the bladder by incising the anterior parietal peritoneum just lateral to the median umbilical ligaments bilaterally. The bladder was dropped from the anterior abdominal and pelvic wall. The endopelvic fascia was identified and incised bilaterally, allowing for dissection of the posterior-lateral aspect of the prostate. The puboprostatic ligaments were transected near their origin from the posterior pubic ramus. This posterior lateral dissection of the prostate is also undertaken in a fashion so as to avoid electrocautery as much as possible. The dorsal vein of the penis is then secured with an 0 -Vicryl ligature. Attention is then turned to the bladder neck. The anterior bladder neck is incised at the vesico-prostatic junction. The previously placed urethral catheter was drawn through the urethrotomy. A very small bladder neck was maintained throughout the remainder of this dissection. The posterior bladder neck was incised in a fashion so as to avoid any injury to the ureteral orifices. Again, the small aperture of the bladder neck was maintained. The previously dissected vas deferens and the seminal vesicles were brought through the posterior bladder neck incision. The lateral prostatic pedicles were then carefully dissected from the lateral aspect of the prostate bilaterally. The prostatic pedicles were secured with Weck clips and transected. The neurovascular bundles were carefully dissected from the posterior-lateral aspect of the prostate. The dorsal vein of the penis was incised with electrocautery. Using cold scissors, the urethra was incised. After withdrawing the previously placed urethral catheter, the posterior urethra was sharply incised, as was the rectalurethralis muscle. Attention was then turned to an extended bilateral pelvic lymphadenectomy. The limits of this dissection were similar bilaterally. Specifically, the limits were the bifurcation of the common iliac vein proximally, the inguinal ligament distally, the obturator nerve posteriorly and the anterior aspect to the external iliac artery laterally. This dissection was under
--- NOTE | 2021-11-05 13:01 | ADMGEN ---
This patient, Rolf Freitas, was admitted to Medical Room 244-. Patient/family oriented to hospital policies and general routines including ID bracelet, bed and alarms, visiting hours, pain management, procedures, bathroom and other care routines, personal items, smoking policy, room service/diet, and visiting hours. Information on how to activate the Rapid Response Team has been discussed. Patient/Family are encouraged to report perceived risks to care and to ask questions if they do not understand what they are told or what they should do.
[2021-11-05] MEDS: LACTATED RINGERS 1,000 ML 125 ML IV CONT ×2 (13:07→22:31)
[2021-11-05] MEDS: KETOROLAC 30 MG/ML VIAL (*BKC) IV PUSH ×2 (14:39→20:20)
[2021-11-06 02:22] VITALS: BP 114/63; PULSE 86; RESP 18; TEMP 36.3; O2SAT 95
[2021-11-06 04:55] LABS: Hematocrit 35.9 % (42.0-52.0); Hemoglobin 12.9 g/dL (14.0-18.0)
[2021-11-06 05:04] LABS: Anion Gap 4 mmol/L (8-16); Blood Urea Nitrogen 17 mg/dL (9-20); Calcium 8.3 mg/dL (8.4-10.2); Carbon Dioxide 27 mmol/L (22-30); Chloride 105 mmol/L (98-107); Estimated CRCL calculation 73 ml/min; Estimated Glomerular Filt Rate > 60; Glucose 132 mg/dL (65-110); Potassium 4.4 mmol/L (3.4-5.0); Sodium 136 mmol/L (137-145)
[2021-11-06 06:15] VITALS: BP 116/59; PULSE 74; RESP 16; TEMP 36.9; O2SAT 94
[2021-11-06] MEDS: KETOROLAC 30 MG/ML VIAL (*BKC) IV PUSH (06:48)
[2021-11-06] MEDS: LACTATED RINGERS 1,000 ML 125 ML IV CONT (06:49)
[2021-11-06] MEDS: levoFLOXacin 500 MG TABLET PO (07:56)
--- NOTE | 2021-11-06 08:25 | WPDANESPN ---
Anes - Prog Note Post-Op Date/Time: 11/06/21 08:25 Vital Signs: Last Vital Signs Temp 36.9 C 11/06/21 06:15 Pulse 74 11/06/21 06:15 Resp 16 11/06/21 06:15 BP 116/59 L 11/06/21 06:15 Pulse Ox 94 11/06/21 06:15 O2 Del Method Room Air 11/05/21 22:00 O2 Flow Rate 1 11/05/21 21:00 Pain Score (VAS): 0 I/O: Intake & Output 11/05/21 11/06/21 11/06/21 23:59 07:59 15:59 Intake Total 1620 1100 480 Output Total 550 2350 Balance 1070 -1250 480 Laboratory Tests 11/06/21 04:36 11/06/21 04:36 11/05/21 11/06/21 11/06/21 07:13 04:36 04:36 Hgb 12.9 L D Hct 35.9 L Sodium 136 L Potassium 4.4 Chloride 105 Carbon Dioxide 27 Anion Gap 4 L BUN 17 Creatinine 1.20 Estim Creat Clear Calc 73 Estimated GFR > 60 Glucose 132 H Calcium 8.3 L Antibody Screen Negative Patient Feedback: Patient satisfied with anesthetic care.
[2021-11-06 10:36] VITALS: BP 118/71; PULSE 76; RESP 16; TEMP 36.4; O2SAT 97
--- NOTE | 2021-11-06 14:10 | WPDUROPN2 ---
Progress Note: A&P Assessment and Plan (1) Prostate cancer: Code(s): C61 - Malignant neoplasm of prostate Status: Acute Assessment and Plan: -patient feeling well -plan discharge home today -follow-up as scheduled with cystogram and catheter removal in the office Subjective Subjective Date/Time Seen: 11/06/21 14:10 Review of Systems Review of Systems: pt feeling well. He is ambulating. no significant pain Exam Narrative: Patient is awake and alert. No acute distress. Breathing is nonlabored. Abdomen soft nontender nondistended. Incisions are clean dry and intact. Lozada catheter in place with clear yellow urine Objective Data Vital Signs Vital Signs: Vital Signs - 24 hr 11/05/21 14:30 11/05/21 17:18 11/05/21 17:45 Temperature 35.9 C L 36.1 C L Pulse Rate 85 85 Respiratory Rate 16 18 Blood Pressure 128/74 136/77 Pulse Oximetry 94 92 94 Oxygen Delivery Nasal Cannula Oxygen Flow Rate 2 11/05/21 20:00 11/05/21 21:00 11/05/21 22:00 Temperature Pulse Rate Respiratory Rate Blood Pressure Pulse Oximetry 96 96 94 Oxygen Delivery Nasal Cannula Room Air Oxygen Flow Rate 2 1 11/05/21 22:22 11/06/21 02:22 11/06/21 06:15 Temperature 36.3 C L 36.3 C L 36.9 C Pulse Rate 93 86 74 Respiratory Rate 18 18 16 Blood Pressure 132/74 114/63 116/59 L Pulse Oximetry 96 95 94 Oxygen Delivery Oxygen Flow Rate 11/06/21 10:36 Temperature 36.4 C Pulse Rate 76 Respiratory Rate 16 Blood Pressure 118/71 Pulse Oximetry 97 Oxygen Delivery Oxygen Flow Rate Intake/Output Intake/Output: Intake & Output 11/03/21 11/04/21 11/05/21 11/06/21 23:59 23:59 23:59 23:59 Intake Total 2070 1580 Output Total 850 2350 Balance 1220 -770 Meds/Results Medications: Active Medications Generic Name Dose Route Start Last Admin Trade Name Freq PRN Reason Stop Dose Admin Fentanyl Citrate 25 mcg 11/04/21 13:27 Fentanyl Citrate Inj (*Crx) 100 Mcg/2 Ml Vial IV PUSH Q2M PRN Pain Hyoscyamine 0.125 mg 11/05/21 12:37 Hyoscyamine Sulfate 0.125 Mg Tablet SUBLINGUAL Q4H PRN Bladder Spasm Lactated Ringer's 1,000 mls @ 125 mls/hr 11/05/21 12:37 11/06/21 06:49 Lr - Lactated Ringers Iv IV CONT 125 mls/hr .Q8H BELL Administration Levofloxacin 500 mg 11/06/21 09:00 11/06/21 07:56 Levofloxacin 500 Mg Tablet PO 500 mg DAILY BELL Administration Naloxone HCl 0.1 mg 11/05/21 12:37 Naloxone Hcl 0.4 Mg/Ml Vial IV PUSH Q2M PRN Opiate Reversal Ondansetron HCl 4 mg 11/04/21 13:27 Ondansetron Inj 4 Mg/2 Ml Vial IV PUSH ONCE PRN Nausea Ondansetron HCl 4 mg 11/05/21 12:37 Ondansetron Inj 4 Mg/2 Ml Vial IV PUSH Q6H PRN Nausea And Vomiting Labs Labs: Laboratory Results - last 24 hr 11/06/21 11/06/21 04:36 04:36 Hgb 12.9 L D Hct 35.9 L Sodium 136 L Potassium 4.4 Chloride 105 Carbon Dioxide 27 Anion Gap 4 L BUN 17 Creatinine 1.20 Estim Creat Clear Calc 73 Estimated GFR > 60 Glucose 132 H Calcium 8.3 L
== END 2021-11-06 14:40 | disposition home or self-care (01) ==
LOC: ANHSURGERY 05:46 → ANH2MED 12:56
PROVIDERS: PCP Internal Medicine; Visit Provider Urology
PROC: 0VT04ZZ Resection of Prostate, Percutaneous Endoscopic Approach (ICD-10-PCS; CPT 55867; principal; 2021-11-05 07:30)
DX: C61 Malignant neoplasm of prostate (principal); K76.0 Fatty (change of) liver, not elsewhere classified; E78.00 Pure hypercholesterolemia, unspecified; Z87.891 Personal history of nicotine dependence; E66.9 Obesity, unspecified; Z68.30 Body mass index [BMI] 30.0-30.9, adult
CPT/HCPCS: 55866; 38571; S2900; 36415; 71046; 80048; 80053; 81001; 85014; 85018; 85025; 85610; 85730; 86850; 86900; 86901; 88305; 88309; 88342; A9270; J0131; J0690; J1100; J1170; J1885; J2250; J2405; J2704; J3010; J7030; J7120

== ENCOUNTER 2021-11-13 06:48 | Outpatient (CLI) | payer OTHER, SELFPAY ==
--- NOTE | ~2021-11-13 | XR_ITS ---
EXAMINATION: CYSTOGRAM DATE: 11/13/2021 07:59 INDICATION: Status post prostatectomy TECHNIQUE: Initial vocational rehabilitation consultant radiograph of the pelvis was performed. There was retrograde administration of Omnipaque 350 mixed with saline contrast into patient's existing Lozada catheter. Fluoroscopic maco ges of the pelvis were obtained. A post-void image was also performed. Fluoroscopy exposure time was 0.4 minutes. FINDINGS: Contrast fills the normal-appearing bladder. No extraluminal contrast extravasation to suggest bladde r leak. No vesicoureteral reflux. IMPRESSION: 1. No bladder leak Reviewed, dictated and finalized at location A. IMPRESSION: 1. No bladder leak
== END 2021-11-13 06:49 | disposition home or self-care (01) ==
PROVIDERS: PCP Internal Medicine; Visit Provider Urology
DX: C61 Malignant neoplasm of prostate (principal)
CPT/HCPCS: 51600; 74430; Q9967

== ENCOUNTER 2022-03-27 09:17 | Outpatient (CLI) | payer OTHER, SELFPAY ==
[2022-03-27 09:45] LABS: Alanine Aminotransferase 66 U/L (6-50); Albumin Level 4.7 g/dL (3.5-5.1); Alkaline Phosphatase 63 U/L (38-126); Anion Gap 10 mmol/L (8-16); Aspartate Amino Transferase 42 U/L (17-59); Bilirubin,Total 0.6 mg/dL (0.2-1.3); Blood Urea Nitrogen 19 mg/dL (9-20); Calcium 9.2 mg/dL (8.4-10.2); Carbon Dioxide 26 mmol/L (22-30); Chloride 104 mmol/L (98-107); Cholesterol 175 mg/dL (0-200); Estimated Glomerular Filt Rate > 60; Glucose 173 mg/dL (65-110); HDL Direct 42 mg/dL; Potassium 4.3 mmol/L (3.4-5.0); Sodium 140 mmol/L (137-145); Triglycerides 226 mg/dL (<150)
[2022-03-27 09:56] LABS: LDL Cholesterol Direct 79 mg/dL
[2022-03-27 10:14] LABS: Prostate Specific Antigen 0.1 ng/mL (< OR = 4.0)
[2022-03-27 10:24] LABS: Hemoglobin A1C 6.1 % (<5.7)
== END 2022-03-27 09:18 | disposition home or self-care (01) ==
PROVIDERS: PCP Internal Medicine; Visit Provider Nurse Practitioner
DX: R73.03 Prediabetes (principal); E78.00 Pure hypercholesterolemia, unspecified; R97.20 Elevated prostate specific antigen [PSA]
CPT/HCPCS: 36415; 80053; 80061; 83036; 84153

== ENCOUNTER 2022-10-02 07:56 | Outpatient (CLI) | payer OTHER, SELFPAY ==
[2022-10-02 09:13] LABS: Hemoglobin A1C 5.6 % (<5.7)
[2022-10-02 09:15] LABS: Alanine Aminotransferase 80 U/L (6-50); Albumin Level 4.3 g/dL (3.5-5.1); Alkaline Phosphatase 61 U/L (38-126); Anion Gap 9 mmol/L (8-16); Aspartate Amino Transferase 46 U/L (17-59); Bilirubin,Total 0.9 mg/dL (0.2-1.3); Blood Urea Nitrogen 17 mg/dL (9-20); Calcium 8.7 mg/dL (8.4-10.2); Carbon Dioxide 25 mmol/L (22-30); Chloride 106 mmol/L (98-107); Cholesterol 171 mg/dL (0-200); Estimated Glomerular Filt Rate > 60; Glucose 124 mg/dL (65-110); HDL Direct 36 mg/dL; Potassium 4.2 mmol/L (3.4-5.0); Sodium 140 mmol/L (137-145); Triglycerides 165 mg/dL (<150)
[2022-10-02 09:22] LABS: LDL Cholesterol Direct 92 mg/dL
[2022-10-02 09:44] LABS: Prostate Specific Antigen 0.5 ng/mL (< OR = 4.0)
== END 2022-10-02 07:57 | disposition home or self-care (01) ==
LOC: ANHLAB 07:57
PROVIDERS: PCP Family Medicine; Visit Provider Nurse Practitioner
DX: C61 Malignant neoplasm of prostate (principal); R73.03 Prediabetes; E78.5 Hyperlipidemia, unspecified; I10 Essential (primary) hypertension
CPT/HCPCS: 36415; 80053; 80061; 83036; 84153

== ENCOUNTER 2022-11-19 12:24 | Outpatient (CLI) | payer OTHER, SELFPAY ==
--- NOTE | ~2022-11-19 | PE_ITS ---
EXAMINATION: PET_PETPSMAST_PT DATE: 11/19/2022 15:30 INDICATION: Malignant prostate cancer TECHNIQUE: 9.638 mCi of pipflufolastat F-18 (18-F-DCFPyL) was administered i.v. Low dose computed to mography (CT) images were acquired from the base of the brain to the base of the brain to the proxima l thighs for attenuation correction and anatomic localization. Positron emission tomography (PET) maco ges were acquired in the same distribution beginning 101 minutes after injection. Images including fu sed PET/CT images were reconstructed in axial, coronal, and sagittal planes. Automated exposure contr ol technique was employed. The dose-length product was 771.34mGy-cm. COMPARISON: 08/17/2021 FINDINGS: Head/neck: Typical pattern of symmetric physiologic increased activity in the lacrimal, parotid and submandibula r glands as well as along the mucosa of the nasal and oral cavities, the sarah-, naso- and hypopharynx, the glottis and esophagus. Typical symmetric pattern of tiny foci of likely neural ganglia associate d uptake at the bilateral cervical neural foramina. No pathologically enlarged cervical lymphadenopat hy or suspicious foci of increased uptake in the visualized head or neck. Chest: Emphysema. Discoid atelectasis in the lingula and bilateral lower lobes. No pneumonia, suspicious pul monary nodules or pleural effusion. Heart size is normal. No pericardial effusion. A couple calcified mediastinal lymph nodes consistent with old granulomatous disease. No pathologically enlarged or FDG avid thoracic lymphadenopathy. Small focus of mild uptake with maximal SUV of 3.5 associated with a subtle small sclerotic lesion at the lateral left seventh rib which is without evident PSMA activity on the prior PET/CT. Subtle small sclerotic lesion is however evident at this location on the CT perf ormed on 02/02/2007 suggesting a chronic benign etiology such as enchondroma or fibrous dysplasia. Abdomen/pelvis/proximal thighs: Physiologic renal accumulation and excretion of activity in the kidneys, bladder and along portions o f ureters. Interval prostatectomy with no abnormal surrounding soft tissue density or PSMA activity a side from the urinary activity extending into the prostatectomy defect to suggest residual/recurrent disease.. Normal degree and slightly heterogenous pattern of increased uptake throughout the liver an d spleen without radiologic correlate or dominant PSMA avid lesion. The gallbladder, pancreas and aura ateral adrenal glands are normal. Moderate uptake scattered throughout the bowels with typical duoden al and proximal jejunal predominance and without radiologic correlate, also likely physiologic. Upper asymmetric mild PSMA activity at normal-sized left and right lateral external iliac lymph nodes posi tioned between the common iliac veins in the anterior margin of the acetabula with maximal SUV of 3.6 on the right and 4.2 on the left. No other abnormal foci of increased uptake or pathologically enlar ged lymphadenopathy in the abdomen, pelvis or proximal PSMA activity thighs. Small fat-containing lef t inguinal hernia. Musculoskeletal: No other suspicious lytic, blastic or PSMA avid bone lesions. IMPRESSION: 1. Single small focus of mild PSMA activity at a small chronic sclerotic lesion at the left seventh r ib. Given the low activity, chronicity of the sclerosis and absence of other concerning bone lesions would favor benign etiology such as enchondroma or fibrous dysplasia over metastatic disease. 2. Mild uptake such with unchanged normal-sized lymph nodes at the left and right lateral external il iac chains similarly unlikely to represent metastatic disease due to the low activity but would recom mend continued monitoring with PSA levels and attention on any follow-up imaging. Reviewed, dictated and finalized at location B. Electronically signed by Timbo Martin
== END 2022-11-19 12:25 | disposition home or self-care (01) ==
PROVIDERS: PCP Family Medicine; Visit Provider Urology
DX: C61 Malignant neoplasm of prostate (principal)
CPT/HCPCS: 78815; A9595

== ENCOUNTER 2022-12-27 12:18 | Outpatient (CLI) | payer OTHER, SELFPAY ==
[2022-12-27 14:51] LABS: Prostate Specific Antigen 0.6 ng/mL (< OR = 4.0)
== END 2022-12-27 12:19 | disposition home or self-care (01) ==
LOC: ANHLAB 12:20
PROVIDERS: PCP Family Medicine; Visit Provider Radiology Radiation Oncology
DX: C61 Malignant neoplasm of prostate (principal)
CPT/HCPCS: 36415; 84153

== ENCOUNTER 2023-01-24 08:35 | Outpatient (CLI) | payer OTHER, SELFPAY ==
--- NOTE | ~2023-01-24 | MR_ITS ---
EXAMINATION: MR pelvis wo/w con DATE: 01/24/2023 09:42 INDICATION: Malignant neoplasm of prostate. TECHNIQUE: Magnetic resonance imaging (MRI) of the pelvis was performed without and with 20 mL MultiH ance intravenous contrast. COMPARISON: PET CT 11/19/2022 FINDINGS: There are changes of prostatectomy. There are two 9 mm enhancing masses at the posterior inferior wal l of the bladder. There is a left inguinal hernia containing fat. There are no pathologically enlarge d lymph nodes. There is no free intraperitoneal fluid. There is no osseous malignancy. IMPRESSION: 1. Two 9 mm enhancing masses at the posterior inferior wall of the bladder, which are suspicious for malignancy. Reviewed, dictated and finalized at location A. IMPRESSION: 1. Two 9 mm enhancing masses at the posterior inferior wall of the bladder, whi ch are suspicious for malignancy.
== END 2023-01-24 08:36 | disposition home or self-care (01) ==
PROVIDERS: PCP Family Medicine; Visit Provider Radiology Radiation Oncology
DX: C61 Malignant neoplasm of prostate (principal)
CPT/HCPCS: 72197; A9577

== ENCOUNTER 2023-04-09 08:47 | Outpatient (CLI) | payer OTHER, SELFPAY ==
[2023-04-09 09:43] LABS: Basophils Percent Auto 0.8 % (0.2-1.2); Eosinophils Absolute Auto 0.1 K/mm3 (0-0.3); Eosinophils Percent Auto 3.5 % (0-4.4); Hematocrit 22.8 % (42.0-52.0); Hemoglobin 7.1 g/dL (14.0-18.0); Immature Granulocyte Absolute 0.02 K/mm3 (0.00-0.031); Immature Granulocyte Percent A 0.5 % (0-0.5); Lymphocytes Absolute Auto 0.94 K/mm3 (0.9-3.2); Lymphocytes Percent Auto 25.6 % (18.3-44.2); Mean Corpuscular HGB Conc 31.1 g/dl (32-36); Mean Corpuscular Hemoglobin 28.7 pg (26-34); Mean Corpuscular Volume 92.3 fl (80-100); Mean Platelet Volume 9.8 fl (7.4-10.4); Monocytes Absolute Auto 0.4 K/mm3 (0.1-0.6); Monocytes Percent Auto 10.6 % (2.6-8.5); Neutrophils Absolute Auto 2.2 K/mm3 (1.3-6.7); Nucleated Red Blood Cells Perc 0.8 % (0.0-0.2); Platelet Count Result 197 k/mm3 (150-375); Red Blood Count 2.47 M/mm3 (4.6-6.20); Red Cell Distribution Width 15.6 % (11.5-14.5); White Blood Count 3.7 K/mm3 (4.5-10.0)
[2023-04-09 09:53] LABS: Alanine Aminotransferase 57 U/L (6-50); Alkaline Phosphatase 57 U/L (38-126); Anion Gap 9 mmol/L (8-16); Aspartate Amino Transferase 40 U/L (17-59); Bilirubin,Total 0.4 mg/dL (0.2-1.3); Blood Urea Nitrogen 17 mg/dL (9-20); Carbon Dioxide 23 mmol/L (22-30); Chloride 108 mmol/L (98-107); Cholesterol 153 mg/dL (0-200); Estimated Glomerular Filt Rate > 60; Glucose 130 mg/dL (65-110); HDL Direct 48 mg/dL; Potassium 4.3 mmol/L (3.4-5.0); Sodium 140 mmol/L (137-145); Triglycerides 213 mg/dL (<150)
[2023-04-09 10:04] LABS: Hemoglobin A1C 5.4 % (<5.7); LDL Cholesterol Direct 61 mg/dL
--- NOTE | 2023-04-16 15:24 | P.PNCROSS_ITS ---
Event Note Event Note Event Note: I was able to contact the patient and notify him of his low H/H as well as posi tive occult stool. I let the patient know that my recommendation is for him to be evaluated in the ED as he needs to have a blood transfusion and work up for GI bleed. The patient stated that he cannot afford that given his current cancer treatments. I explained risks associated with low hemoglobin including dizziness, shortness of breath, falls, heart attack, and even . The patient appreciates the call but is declining the recommendation to be evaluated at this time. He says he will discuss with his PCP Shonda Gonzalez on Tuesday.
== END 2023-04-09 08:48 | disposition home or self-care (01) ==
LOC: ANHLAB 08:48
PROVIDERS: PCP Family Medicine; Visit Provider Nurse Practitioner Family
DX: Z00.00 Encounter for general adult medical examination without abnormal findings (principal); I10 Essential (primary) hypertension; R73.03 Prediabetes; E78.00 Pure hypercholesterolemia, unspecified
CPT/HCPCS: 36415; 80053; 80061; 83036; 85025

== ENCOUNTER 2023-04-16 08:43 | Outpatient (CLI) | payer OTHER, SELFPAY ==
[2023-04-16 08:23] LABS: Hematocrit 22.8 % (42.0-52.0); Immature Reticulocyte Fraction 41.5 % (3.0-15.9); Reticulocyte Hemoglobin Conten 21.4 pg (28.2-35.7); Reticulocyte Percent 4.96 % (0.7-4.3); Reticulocytes Absolute 0.12 M/mm3 (0.02-0.1)
[2023-04-16 09:10] LABS: Hemoglobin 6.9 g/dL (14.0-18.0)
--- NOTE | 2023-04-16 09:12 | PM.EVENT ---
Event Note Event Note Event Note: 04/16 912: Attempted to contact patient to report low hemoglobin result of 6.9 and Hct 22.8. I left a voicemail with directions to call back to discuss labs.
[2023-04-16 09:27] LABS: Iron 25 ug/dL (49-181)
[2023-04-16 09:44] LABS: Percent Iron Saturation 6 % (20-50)
[2023-04-16 10:05] LABS: Ferritin 8.42 ng/mL (11.1-264)
[2023-04-16 14:36] LABS: IFOB Positive Control Positive; Immunochemical Fecal Occult Bl Positive (N)
[2023-04-19 11:48] LABS: Red Blood Cell Folate 908 ng/mL RBC (>280)
== END 2023-04-16 08:44 | disposition home or self-care (01) ==
PROVIDERS: PCP Nurse Practitioner Family; Visit Provider Nurse Practitioner Family
DX: D64.9 Anemia, unspecified (principal)
CPT/HCPCS: 36415; 82274; 82728; 82747; 83540; 83550; 85014; 85018; 85046

== ENCOUNTER 2023-04-17 12:14 | Emergency (ER) | payer OTHER, SELFPAY ==
[2023-04-17] VITALS (9 sets, daily range): BP systolic 118–138; BP diastolic 76–86; PULSE 67–83; RESP 15–21; TEMP 36.2–36.8; O2SAT 12–100
--- NOTE | ~2023-04-17 | CT_ITS ---
EXAMINATION: CT abdomen pelvis w con DATE: 04/17/2023 14:47 INDICATION: Hematochezia. Low hemoglobin. Blood in stool. TECHNIQUE: Computed tomography (CT) of the abdomen and pelvis was performed with 100 cc Omnipaque 350 intravenous contrast. The dose-length product was 1220.34 mGy-cm. Automated exposure control and ite rative reconstruction technique were employed. COMPARISON: CT dated 02/02/2007 FINDINGS: 2 mm right middle lobe nodule, likely benign. Left lower lobe atelectasis/scarring. Heart s ize normal. No significant pleural or pericardial effusion. No significant vascular abnormality. No l ymphadenopathy. Colonic diverticulosis without evidence for diverticulitis. Normal appendix. No evide nce for bowel obstruction. Bladder is unremarkable. No abnormal pelvic masses or fluid collections. Fatty infiltration of the liver. Gallbladder is unremarkable. The spleen, pancreas, adrenal glands ar e unremarkable. There is a 2 mm nonobstructing left renal stone. Small exophytic right renal cyst carrie suring 1.5 cm. No free air or free fluid. There is a fat-containing left inguinal hernia. There is os teoarthritis of the hips. There is grade 1 spondylolisthesis at L4-5. IMPRESSION: 1. Nonobstructing left nephrolithiasis. 2: Fatty infiltration of the liver. Reviewed, dictated and finalized at location A. TIC HABITAT BIOLOGIST
[2023-04-17 12:56] LABS: Basophils Percent Auto 0.4 % (0.2-1.2); Eosinophils Absolute Auto 0.1 K/mm3 (0-0.3); Eosinophils Percent Auto 2.9 % (0-4.4); Hematocrit 23.5 % (42.0-52.0); Immature Granulocyte Absolute 0.02 K/mm3 (0.00-0.031); Immature Granulocyte Percent A 0.7 % (0-0.5); Lymphocytes Percent Auto 17.9 % (18.3-44.2); Mean Corpuscular HGB Conc 29.8 g/dl (32-36); Mean Corpuscular Hemoglobin 27.1 pg (26-34); Mean Corpuscular Volume 91.1 fl (80-100); Mean Platelet Volume 9.4 fl (7.4-10.4); Monocytes Absolute Auto 0.3 K/mm3 (0.1-0.6); Monocytes Percent Auto 10.4 % (2.6-8.5); Neutrophils Absolute Auto 1.9 K/mm3 (1.3-6.7); Neutrophils Percent Auto 67.7 % (45.5-73.1); Nucleated Red Blood Cells Perc 0.7 % (0.0-0.2); Platelet Count Result 167 k/mm3 (150-375); Red Blood Count 2.58 M/mm3 (4.6-6.20); Red Cell Distribution Width 15.4 % (11.5-14.5); White Blood Count 2.8 K/mm3 (4.5-10.0)
[2023-04-17 13:09] LABS: Potassium 4.1 mmol/L (3.4-5.0); Prothrombin Time 14.2 Seconds (11.1-14.7)
[2023-04-17 13:10] LABS: Partial Thromboplastin Time 29.1 SECONDS (22.3-36.8)
[2023-04-17 13:11] LABS: Alanine Aminotransferase 58 U/L (6-50); Albumin Level 4.2 g/dL (3.5-5.1); Alkaline Phosphatase 58 U/L (38-126); Anion Gap 8 mmol/L (8-16); Aspartate Amino Transferase 36 U/L (17-59); Bilirubin,Total 0.4 mg/dL (0.2-1.3); Blood Urea Nitrogen 12 mg/dL (9-20); Carbon Dioxide 23 mmol/L (22-30); Chloride 107 mmol/L (98-107); Estimated CRCL calculation 94 ml/min; Estimated Glomerular Filt Rate > 60; Glucose 150 mg/dL (65-110); Sodium 138 mmol/L (137-145)
--- NOTE | 2023-04-17 13:32 | ED.GIBLEED ---
HPI - GI Bleed General Chief complaint: Recheck/Abnormal Lab/Rx Stated complaint: Hg 6.7 Time Seen by Provider: 04/17/23 13:29 Source: patient History of Present Illness HPI Narrative: This is a 62 yo male who presents with concern for low hemoglobin. He was told it was 6.7 and to present to the ED. He has noticed blood on the toilet paper , in the toilet bowl water, and mixed in with the stool for the past 4-5 weeks, usuaully with every bowel movement. He has noticed rectal bleeding but no abdominal pain. His last bowel movement was this morning and was not grossly bloody. No nausea/vomiting. He is currently undergoing prostate cancer treatment and has 2 appointments scheduled for tomorrow. No hematuria, penila pain, scrotal pain/swelling. He thought the bleeding might be due to metamucil so he stopped taking it. He had been prescribed that as well as GasX due to his radiation treatment. Not on anticoagulation. 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 This has happened before. His last colonoscopy was either in [address] Brown when he had some polyps removed and was told to schedule again in 5 years. He has been feeling dizziy and lightheaded with some shortness of breath. Related Data Allergies Allergy/AdvReac Type Severity Reaction Status Date / Time No Known Allergies Allergy Mild Verified 04/18/23 07:31 [facility] Past Medical History Medical History Benign prostatic hyperplasia without lower urinary tract symptoms Bilateral hearing loss Cancer of prostate with intermediate recurrence risk, stage T2B-C or Chitra 7 or prostate-specific antigen (PSA) 10-20 Elevated PSA Fatty (change of) liver, not elsewhere classified Hearing loss Hemorrhoids Hyperglycemia Knee joint effusion Knee pain, chronic Left knee DJD Patellar tendinitis of left knee Prostate cancer Pure hypercholesterolemia Right knee DJD Wears glasses Surgical History Surgical History (Updated 04/20/23 @ 10:39 by Stacey Urbano MD) History of colonoscopy 2019 vs 2020; Dr Brown History of ear surgery 1979's History of prostate surgery History of umbilical hernia repair 1959 Family History Family History Mother Family history of malignant neoplasm of breast in first degree relative Sibling Patient's sister is in good health Patient's brother is in good health Father Patient's father is Social History Social History Smoking packs per day: 1 Smoking cigarettes per day: 20.0 Years smoked: 23 Smoking pack-years: 23.00 Smoking status: Former smoker Tobacco type: cigarettes Smoking end date: 05/16/05 Alcohol intake: current Drinks per week: 2 Alcohol use details: BEER occasionally Substance use: never Substance use type: does not use Lack of Transportation: No Lack of Food: Never True Current Housing: I Have Housing Concerned About Future Housing: No Difficulty Paying Gas/Electric Bills: No Difficulty Paying for Meds: No Currently Unemployed: No Education: High School Diploma/GED Difficulty w/ Childcare or Family Care: No Living arrangements: with family Gender identity (if verbalized by the patient): Male Spiritual care concerns: No Exam Narrative: GENERAL: Well-appearing, well-nourished, and in no acute distress. HEAD: Normocephalic, atraumatic. EYES: non injected, non icteric; conjunctival pallor ENT: Nares clear, no rhinorrhea or epistaxis. NECK: Supple. CHEST: Clear to auscultation. Speaking in full sentences. No respiratory distress. HEART: Regular rate and rhythm. ABDOMEN: Soft, nontender, nondistended. . A digital rectal exam was performed. External hemorrhoids were appreciated, none were acutely thrombosed. Normal sphincter tone, no masses felt within the rectal vault. Brown stool w
[2023-04-17] MEDS: SODIUM CHLORIDE 0.9% IV 250 ML 30 ML IV CONT (14:56)
== END 2023-04-17 17:06 | disposition home or self-care (01) ==
PROVIDERS: Emergency Provider Student in an Organized Health Care Education/Training Program; PCP Family Medicine
DX: D64.9 Anemia, unspecified (principal); K92.1 Melena; K64.4 Residual hemorrhoidal skin tags; C61 Malignant neoplasm of prostate; N40.0 Benign prostatic hyperplasia without lower urinary tract symptoms; E78.00 Pure hypercholesterolemia, unspecified; K76.0 Fatty (change of) liver, not elsewhere classified; M17.0 Bilateral primary osteoarthritis of knee; Z87.891 Personal history of nicotine dependence; N20.0 Calculus of kidney
CPT/HCPCS: 36415; 36430; 74177; 80053; 85025; 85610; 85730; 86850; 86900; 86901; 86923; 96360; 96361; 99285; J7050; P9016; Q9967

== ENCOUNTER 2023-04-23 09:36 | Outpatient (CLI) | payer OTHER, SELFPAY ==
[2023-04-23 11:20] LABS: Basophils Percent Auto 0.8 % (0.2-1.2); Eosinophils Percent Auto 1.1 % (0-4.4); Hematocrit 28.1 % (42.0-52.0); Hemoglobin 8.5 g/dL (14.0-18.0); Immature Granulocyte Absolute 0.01 K/mm3 (0.00-0.031); Immature Granulocyte Percent A 0.4 % (0-0.5); Lymphocytes Absolute Auto 0.54 K/mm3 (0.9-3.2); Lymphocytes Percent Auto 20.4 % (18.3-44.2); Mean Corpuscular HGB Conc 30.2 g/dl (32-36); Mean Corpuscular Hemoglobin 26.8 pg (26-34); Mean Corpuscular Volume 88.6 fl (80-100); Mean Platelet Volume 9.9 fl (7.4-10.4); Monocytes Absolute Auto 0.3 K/mm3 (0.1-0.6); Monocytes Percent Auto 10.6 % (2.6-8.5); Neutrophils Absolute Auto 1.8 K/mm3 (1.3-6.7); Neutrophils Percent Auto 66.7 % (45.5-73.1); Platelet Count Result 174 k/mm3 (150-375); Red Blood Count 3.17 M/mm3 (4.6-6.20); Red Cell Distribution Width 14.6 % (11.5-14.5); White Blood Count 2.7 K/mm3 (4.5-10.0)
[2023-04-23 11:36] LABS: Alanine Aminotransferase 70 U/L (6-50); Albumin Level 4.6 g/dL (3.5-5.1); Alkaline Phosphatase 60 U/L (38-126); Anion Gap 9 mmol/L (8-16); Aspartate Amino Transferase 47 U/L (17-59); Bilirubin,Total 0.4 mg/dL (0.2-1.3); Blood Urea Nitrogen 16 mg/dL (9-20); Calcium 9.3 mg/dL (8.4-10.2); Carbon Dioxide 23 mmol/L (22-30); Chloride 107 mmol/L (98-107); Estimated Glomerular Filt Rate > 60; Glucose 144 mg/dL (65-110); Potassium 3.9 mmol/L (3.4-5.0); Sodium 139 mmol/L (137-145)
[2023-04-23 11:58] LABS: Iron 36 ug/dL (49-181)
[2023-04-23 12:08] LABS: Percent Iron Saturation 8 % (20-50)
== END 2023-04-23 09:37 | disposition home or self-care (01) ==
LOC: ANHLAB 09:39
PROVIDERS: PCP Family Medicine; Visit Provider Nurse Practitioner Family
DX: D64.9 Anemia, unspecified (principal); C61 Malignant neoplasm of prostate; I10 Essential (primary) hypertension; K62.5 Hemorrhage of anus and rectum; R73.03 Prediabetes; Z86.010 Personal history of colon polyps
CPT/HCPCS: 36415; 80053; 83540; 83550; 85025

== ENCOUNTER 2023-05-11 00:23 | Day surgery (SDC) | payer OTHER, SELFPAY ==
[2023-04-22 13:24] VITALS: BMI 31.4
--- NOTE | 2023-04-25 14:56 | PC.NURSE ---
Pre procedure interview for colonoscopy completed on 04/22/2023. Due to recent anemia that required an admission to the emergency department and transfusion PRBC's pt was advised to have follow up lab values drawn as ordered. States he will have labs drawn 04/23/23. Offered earlier date for colonoscopy of 04/25/23 due to anemia and recent symptoms. Declined offer to move colonoscopy date, wants to finish prostate radiation prior to colonoscopy. Warned of risk of waiting, potential for more severe anemia, potential for cardiac complications related to anemia. Refused to move to the 25 of April, or the 06 of May where there are openings available. States he understands the risks and will discuss with his radiation oncologist on Apr 26.
--- NOTE | 2023-05-10 11:17 | SUR.PREOP ---
Patient called regarding upcoming procedure. Message left on patient's voicemail appointment times.
--- NOTE | 2023-05-10 12:39 | PM.HPGS ---
History of Present Illness History of Present Illness Consent: Risks, benefits, and alternatives have been discussed and questions answered. Patient agrees to proceed with procedure. Chief complaint: anemia, Hemorrhage of anus and rectum Narrative: Rolf Freitas is a 62 year old male Who was seen in office for rectal bleeding that lasted for 2 weeks. ? he does have a history of hemorrhoids that he treats with Preparation H as needed. Intermittent Rectal bleeding is not new and has been going on for years. Blood is bright red in color.? States this episode was similar previous episodes? however this time it lasted approximately 2 weeks versus 1 week. . He does have a history prostate cancer and underwent prostatectomy in 2021 with no radiation or chemotherapy.? he denies any associated rectal pain, pressure, or itching, fever, or abdominal pain. ? Denies any change in bowel habits. He denies any blood thinners or aspirin use. ? 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 Last colonoscopy was in 2020 with tubular adenomatous colon polyps and internal hemorrhoids. He also has been found to be anemic. Last year he had a hemoglobin of 12.9 and was down to 6.9 a couple weeks ago. At that time he presented to emergency room with rectal bleeding was given a blood transfusion. His last hemoglobin was 8.5 on April 23 Review of Systems Review of Systems: All systems reviewed & are unremarkable except as noted in HPI and below PMFSH Past Medical History Medical History Benign prostatic hyperplasia without lower urinary tract symptoms Bilateral hearing loss Cancer of prostate with intermediate recurrence risk, stage T2B-C or [place] 7 or prostate-specific antigen (PSA) 10-20 Elevated PSA Fatty (change of) liver, not elsewhere classified Hearing loss Hemorrhoids Hyperglycemia Knee joint effusion Knee pain, chronic Left knee DJD Patellar tendinitis of left knee Prostate cancer Pure hypercholesterolemia Right knee DJD Wears glasses Surgical History Surgical History History of colonoscopy 2019 vs 2020; Dr Brown History of ear surgery 1979's History of prostate surgery History of umbilical hernia repair 1959 Family History Family History Mother Family history of malignant neoplasm of breast in first degree relative Sibling Patient's sister is in good health Patient's brother is in good health Father Patient's father is Social History Social History Smoking packs per day: 1 Smoking cigarettes per day: 20.0 Years smoked: 23 Smoking pack-years: 23.00 Smoking status: Former smoker Tobacco type: cigarettes Smoking end date: 05/16/05 Alcohol intake: current Drinks per week: 2 Alcohol use details: occasional beer Substance use: never Substance use type: does not use Lack of Transportation: No Lack of Food: Never True Current Housing: I Have Housing Concerned About Future Housing: No Difficulty Paying Gas/Electric Bills: No Difficulty Paying for Meds: No Currently Unemployed: No Education: High School Diploma/GED Difficulty w/ Childcare or Family Care: No Living arrangements: alone Gender identity (if verbalized by the patient): Male Spiritual care concerns: No Meds Home Medications and Allergies Home Medications Medication Instructions Recorded Confirmed Type etodolac 400 mg tablet See Rx Instructions .Route 03/29/22 05/11/23 Rx .COMPLEX #180 tabs Allergies Allergy/AdvReac Type Severity Reaction Status Date / Time No Known Allergies Allergy Mild Verified 05/11/23 06:50 Exam Const: General: alert Orientation/consciousness: patient oriented x3 Resp: Auscultation: clear to auscultation
[2023-05-11 06:51] VITALS: BP 134/80; PULSE 75; RESP 16; TEMP 36.4; O2SAT 99; BMI 31.3
[2023-05-11 07:04] LABS: Hematocrit 28.4 % (42.0-52.0); Hemoglobin 8.4 g/dL (14.0-18.0); Mean Corpuscular HGB Conc 29.6 g/dl (32-36); Mean Corpuscular Hemoglobin 24.6 pg (26-34); Mean Platelet Volume 9.7 fl (7.4-10.4); Platelet Count Result 190 k/mm3 (150-375); Red Blood Count 3.42 M/mm3 (4.6-6.20); Red Cell Distribution Width 14.6 % (11.5-14.5); White Blood Count 3.3 K/mm3 (4.5-10.0)
[2023-05-11] MEDS: LACTATED RINGERS 1,000 ML 150 ML IV CONT (07:09)
--- NOTE | 2023-05-11 07:49 | WPDANESEPPF ---
Anes - Initial Pre Proc Eval Procedure: Operation Date: 05/11/23 08:00 Proposed Procedures p Colonoscopy - Roge Blood MD Date/Time: 05/11/23 07:49 Surgeon: Roge Blood MD Pre Op Diagnosis: anemia, Hemorrhage of anus and rectum Patient Data Age: 62 Gender: M Height: 1.85 m Weight: 107.8 kg Last Vital Signs Temp 97.5 F L 05/11/23 06:51 Pulse 75 05/11/23 06:51 Resp 16 05/11/23 06:51 BP 134/80 05/11/23 06:51 Pulse Ox 99 05/11/23 06:51 O2 Del Method Room Air 05/11/23 06:51 Allergies Allergy/AdvReac Type Severity Reaction Status Date / Time No Known Allergies Allergy Mild Verified 05/11/23 06:50 Home Medications Medication Instructions Recorded Confirmed Type etodolac 400 mg tablet See Rx Instructions .Route 03/29/22 05/11/23 Rx .COMPLEX #180 tabs Laboratory Tests 05/11/23 06:57 WBC 3.3 L K/mm3 (4.5-10.0) RBC 3.42 L M/mm3 (4.6-6.20) Hgb 8.4 L g/dL (14.0-18.0) Hct 28.4 L % (42.0-52.0) MCV 83.0 fl (80-100) MCH 24.6 L pg (26-34) MCHC 29.6 L g/dl (32-36) RDW 14.6 H % (11.5-14.5) Plt Count 190 k/mm3 (150-375) MPV 9.7 fl (7.4-10.4) Patient hx anesthesia problems: none Family hx anesthesia problems: none Results Review: All pre-operative results and documents have been reviewed as part of the pre-operative evaluation. [facility] Past Medical History Medical History Benign prostatic hyperplasia without lower urinary tract symptoms Bilateral hearing loss Cancer of prostate with intermediate recurrence risk, stage T2B-C or [place] 7 or prostate-specific antigen (PSA) 10-20 Elevated PSA Fatty (change of) liver, not elsewhere classified Hearing loss Hemorrhoids Hyperglycemia Knee joint effusion Knee pain, chronic Left knee DJD Patellar tendinitis of left knee Prostate cancer Pure hypercholesterolemia Right knee DJD Wears glasses Surgical History Surgical History History of colonoscopy 2019 vs 2020; Dr Brown History of ear surgery 1979' History of prostate surgery History of umbilical hernia repair 1960 Family History Family History Mother Family history of malignant neoplasm of breast in first degree relative Sibling Patient's sister is in good health Patient's brother is in good health Father Patient's father is Social History Social History Smoking packs per day: 1 Smoking cigarettes per day: 20.0 Years smoked: 23 Smoking pack-years: 23.00 Smoking status: Former smoker Tobacco type: cigarettes Smoking end date: 05/16/05 Alcohol intake: current Drinks per week: 2 Alcohol use details: occasional beer Substance use: never Substance use type: does not use Lack of Transportation: No Lack of Food: Never True Current Housing: I Have Housing Concerned About Future Housing: No Difficulty Paying Gas/Electric Bills: No Difficulty Paying for Meds: No Currently Unemployed: No Education: High School Diploma/GED Difficulty w/ Childcare or Family Care: No Living arrangements: alone Gender identity (if verbalized by the patient): Male Spiritual care concerns: No Anes - Eval Final PreProcedure Day of Procedure 05/11/23 07:49 Patient weight: normal Heart: regular rate and rhythm Lungs: clear to auscultation Airway: Mallampati scale class II Neurological: alert and oriented Last oral intake: >/= 8 hours ASA classification: III Emergent: no Anesthetic plan: proceed Anesthesia type and monitoring: general GIVS and standard monitoring Results Review: All pre-operative results and documents have been reviewed as part of the pre-operative evaluation. Informed Consent: The patient's anesthetic plan
[2023-05-11 08:10] VITALS: BP 86/42; PULSE 64; RESP 21; O2SAT 94
[2023-05-11 08:20] VITALS: BP 83/47; PULSE 61; RESP 14; O2SAT 94
[2023-05-11 08:30] VITALS: BP 87/61; PULSE 64; RESP 17; O2SAT 97
[2023-05-11 08:40] VITALS: BP 102/63; PULSE 63; RESP 17; O2SAT 99
== END 2023-05-11 08:47 | disposition home or self-care (01) ==
PROVIDERS: PCP Family Medicine; Visit Provider Internal Medicine Gastroenterology
PROC: 0DJD8ZZ Inspection of Lower Intestinal Tract, Via Natural or Artificial Opening Endoscopic (ICD-10-PCS; CPT 45378; principal; 2023-05-11 08:00)
DX: K62.5 Hemorrhage of anus and rectum (principal); K64.8 Other hemorrhoids; K62.1 Rectal polyp; K64.4 Residual hemorrhoidal skin tags; K57.30 Diverticulosis of large intestine without perforation or abscess without bleeding; D64.9 Anemia, unspecified; R73.9 Hyperglycemia, unspecified; E78.00 Pure hypercholesterolemia, unspecified; Z98.890 Other specified postprocedural states; Z87.891 Personal history of nicotine dependence; Z85.46 Personal history of malignant neoplasm of prostate; Z80.3 Family history of malignant neoplasm of breast; Z92.3 Personal history of irradiation
CPT/HCPCS: 45380; 36415; 85027; 88305; J2704; J7120

== ENCOUNTER 2023-07-25 11:59 | Outpatient (CLI) | payer OTHER, SELFPAY ==
[2023-07-25 12:23] LABS: Basophils Percent Auto 0.6 % (0.2-1.2); Eosinophils Absolute Auto 0.1 K/mm3 (0-0.3); Eosinophils Percent Auto 2.8 % (0-4.4); Hematocrit 34.1 % (42.0-52.0); Hemoglobin 10.1 g/dL (14.0-18.0); Immature Granulocyte Absolute 0.01 K/mm3 (0.00-0.031); Immature Granulocyte Percent A 0.3 % (0-0.5); Lymphocytes Absolute Auto 0.91 K/mm3 (0.9-3.2); Lymphocytes Percent Auto 28.2 % (18.3-44.2); Mean Corpuscular HGB Conc 29.6 g/dl (32-36); Mean Corpuscular Hemoglobin 21.6 pg (26-34); Mean Corpuscular Volume 72.9 fl (80-100); Mean Platelet Volume 9.2 fl (7.4-10.4); Monocytes Absolute Auto 0.4 K/mm3 (0.1-0.6); Monocytes Percent Auto 11.5 % (2.6-8.5); Neutrophils Absolute Auto 1.8 K/mm3 (1.3-6.7); Neutrophils Percent Auto 56.6 % (45.5-73.1); Platelet Count Result 172 k/mm3 (150-375); Red Blood Count 4.68 M/mm3 (4.6-6.20); White Blood Count 3.2 K/mm3 (4.5-10.0)
[2023-07-25 13:37] LABS: Vitamin D 25 Hydroxy 27.1 ng/mL
[2023-07-25 14:15] LABS: Hypochromasia 1+ (NORMAL); Microcytosis 1+ (NORMAL); Ovalocytes 1+ (NORMAL); Platelet Estimate Adequate (Adequate); Schistocytes None Seen (NORMAL)
[2023-07-25 14:33] LABS: Alanine Aminotransferase 105 U/L (6-50); Albumin Level 4.4 g/dL (3.5-5.1); Alkaline Phosphatase 71 U/L (38-126); Anion Gap 9 mmol/L (8-16); Aspartate Amino Transferase 75 U/L (17-59); Bilirubin,Total 0.5 mg/dL (0.2-1.3); Blood Urea Nitrogen 15 mg/dL (9-20); Calcium 9.5 mg/dL (8.4-10.2); Carbon Dioxide 24 mmol/L (22-30); Chloride 105 mmol/L (98-107); Estimated Glomerular Filt Rate > 60; Glucose 108 mg/dL (65-110); Sodium 138 mmol/L (137-145)
[2023-07-25 15:45] LABS: Folic Acid 7.9 ng/mL (2.76->20)
[2023-07-25 17:09] LABS: Iron 55 ug/dL (49-181)
[2023-07-25 17:27] LABS: Percent Iron Saturation 11 % (20-50)
== END 2023-07-25 12:00 | disposition home or self-care (01) ==
LOC: ANHLAB 12:00
PROVIDERS: PCP Nurse Practitioner Family; Visit Provider Nurse Practitioner Family
DX: D64.9 Anemia, unspecified (principal); E61.1 Iron deficiency; R73.9 Hyperglycemia, unspecified; R73.03 Prediabetes; E55.9 Vitamin D deficiency, unspecified; R53.83 Other fatigue
CPT/HCPCS: 36415; 80053; 82306; 82607; 82728; 82746; 83540; 83550; 85025

== ENCOUNTER 2023-09-04 06:12 | Emergency (ER) | payer OTHER, SELFPAY ==
[2023-09-04] VITALS (17 sets, daily range): BP systolic 134–144; BP diastolic 84–91; PULSE 82–95; RESP 9–23; TEMP 36.6; O2SAT 92–98
--- NOTE | ~2023-09-04 | CT_ITS ---
EXAMINATION: CT abdomen pelvis w con DATE: 09/04/2023 07:45 INDICATION: Right flank and lower abdominal pain TECHNIQUE: Computed tomography (CT) of the abdomen and pelvis was performed without intravenous contr ast. The dose-length product was 1269.60 mGy-cm. Automated exposure control and iterative reconstruct ion technique were employed. COMPARISON: CT dated 04/17/2023 FINDINGS: Dependent atelectasis. Heart size normal. No significant pleural or pericardial effusion. F atty infiltration of the liver. Gallbladder is present. . No definite gallstones are seen. The spleen , pancreas, adrenal glands are unremarkable. There are right renal cysts. No right hydronephrosis. Th ere is a 3 mm left UVJ stone with mild left hydroureteronephrosis. There is periureteral and perineph mady edema. Bladder wall is thickened, although decompressed. There is perivesical fatty infiltration, suspicious for cystitis. No significant vascular abnormality. No lymphadenopathy. There is disc narr owing at L4-5 and L5-S1. There is grade 1 degenerative spondylolisthesis at L4-5. IMPRESSION: 1. Left UVJ stone measuring 3 mm with mild hydronephrosis. 2: Thickened bladder wall with surrounding inflammation, suspicious for cystitis. 3: Fatty infiltration of the liver. Reviewed, dictated and finalized at location A. IMPRESSION: 1. Left UVJ stone measuring 3 mm with mild hydronephrosis. 2: Thickened bladder wall with surrounding inflammation, suspicious for cystiti s. 3: Fatty infiltration of the liver.
[2023-09-04] MEDS: ONDANSETRON INJ 4 MG/2 ML VIAL IV PUSH (06:42)
[2023-09-04 06:53] LABS: Appearance Urine Clear (Clear); Bacteria Urine None Seen /hpf; Bilirubin Urine Negative (Negative); Blood Urine 2+ (Negative); Color Urine Yellow (Yellow); Glucose Urine UA Trace mg/dL (Negative); Ketones Urine Negative (Negative); Leukocyte Esterase Ur Negative LEU/UL (Negative); Nitrate Urine Negative (Negative); Non Pathogenic Casts 0-2; Protein Urine 1+ mg/dL (Negative); RBC Urine >100 /hpf (0-2); Squamous Epithelial Cell Urine None Seen /hpf (Few); Urobilinogen Urine 0.2 mg/dL (<2.0); WBC Urine 0-5 /hpf (0-3)
[2023-09-04 07:02] LABS: Add Urine Microscopic? YES
[2023-09-04 07:05] LABS: Basophils Percent Auto 0.3 % (0.2-1.2); Eosinophils Percent Auto 0.3 % (0-4.4); Hematocrit 35.5 % (42.0-52.0); Hemoglobin 11.2 g/dL (14.0-18.0); Immature Granulocyte Absolute 0.02 K/mm3 (0.00-0.031); Immature Granulocyte Percent A 0.3 % (0-0.5); Lymphocytes Absolute Auto 0.66 K/mm3 (0.9-3.2); Lymphocytes Percent Auto 8.6 % (18.3-44.2); Mean Corpuscular HGB Conc 31.5 g/dl (32-36); Mean Corpuscular Hemoglobin 23.8 pg (26-34); Mean Corpuscular Volume 75.4 fl (80-100); Mean Platelet Volume 9.8 fl (7.4-10.4); Monocytes Absolute Auto 0.4 K/mm3 (0.1-0.6); Monocytes Percent Auto 4.8 % (2.6-8.5); Neutrophils Absolute Auto 6.6 K/mm3 (1.3-6.7); Neutrophils Percent Auto 85.7 % (45.5-73.1); Platelet Count Result 155 k/mm3 (150-375); Red Blood Count 4.71 M/mm3 (4.6-6.20); Red Cell Distribution Width 20.8 % (11.5-14.5); White Blood Count 7.7 K/mm3 (4.5-10.0)
[2023-09-04 07:05] LABS: Alanine Aminotransferase 88 U/L (6-50); Albumin Level 4.6 g/dL (3.5-5.1); Alkaline Phosphatase 79 U/L (38-126); Anion Gap 7 mmol/L (4-12); Aspartate Amino Transferase 63 U/L (17-59); Bilirubin,Total 0.5 mg/dL (0.2-1.3); Blood Urea Nitrogen 25 mg/dL (9-20); Calcium 9.7 mg/dL (8.4-10.2); Carbon Dioxide 23 mmol/L (22-30); Chloride 106 mmol/L (98-107); Estimated Glomerular Filt Rate 51; Glucose 195 mg/dL (65-110); Lipase 153 U/L (23-300); Potassium 4.2 mmol/L (3.4-5.0); Sodium 136 mmol/L (137-145)
--- NOTE | 2023-09-04 07:35 | ED.ABDPAIN ---
HPI - Abdominal Pain General Chief Complaint: Abdominal Pain Stated Complaint: Left flank pain, abd pain Time Seen by Provider: 09/04/23 06:53 History of Present Illness HPI narrative: This is a 62-year-old male, with history of prostate cancer status post excision in 2022 in completion of chemo radiation in April of 2023, presents to the emergency department complaining of left flank and suprapubic abdominal pain. The patient describes the pain as fullness and sharp, rated 8 to 9/10 and constant. He states he had a pain like this approximately 2 months ago that was attributed to renal colic at an outside facility. He complains of some nausea, though denies vomiting, fevers, chills, loose stools or dysuria. Related Data Allergies Allergy/AdvReac Type Severity Reaction Status Date / Time No Known Allergies Allergy Mild Verified 07/25/23 09:12 Review of Systems Review of Systems: CONSTITUTIONAL: Denies fever, chills, or sweats. ENT: Denies rhinorrhea, congestion, sore throat, or otalgia. CARDIOVASCULAR: Denies chest pain, palpitations, or edema. RESPIRATORY: Denies cough or dyspnea. GASTROINTESTINAL: Left flank and suprapubic abdominal pain, nausea Denies vomiting, or diarrhea. GENITOURINARY: Denies dysuria or hematuria. SKIN: Denies rash or itching. MUSCULOSKELETAL: Denies back pain, joint pain, or myalgia. NEUROLOGIC: Denies headache, numbness, dizziness, or weakness. PSYCHIATRIC: Denies anxiety or depression. [facility] Past Medical History Medical History Benign prostatic hyperplasia without lower urinary tract symptoms Bilateral hearing loss Cancer of prostate with intermediate recurrence risk, stage T2B-C or [place] 7 or prostate-specific antigen (PSA) 10-20 Elevated PSA Fatty (change of) liver, not elsewhere classified Hearing loss Hemorrhoids Hyperglycemia Knee joint effusion Knee pain, chronic Left knee DJD Patellar tendinitis of left knee Prostate cancer Pure hypercholesterolemia Right knee DJD Wears glasses Surgical History Surgical History History of colonoscopy 2019 vs 2020; Dr Brown History of ear surgery 1979' History of prostate surgery History of umbilical hernia repair 1959 Family History Family History Mother Family history of malignant neoplasm of breast in first degree relative Sibling Patient's sister is in good health Patient's brother is in good health Father Patient's father is Social History Social History Smoking packs per day: 1 Smoking cigarettes per day: 20.0 Years smoked: 23 Smoking pack-years: 23.00 Smoking status: Former smoker Tobacco type: cigarettes Smoking end date: 05/16/05 Alcohol intake: current Drinks per week: 2 Alcohol use details: occasional beer Substance use: never Substance use type: does not use Lack of Transportation: No Lack of Food: Never True Current Housing: I Have Housing Concerned About Future Housing: No Difficulty Paying Gas/Electric Bills: No Difficulty Paying for Meds: No Currently Unemployed: No Education: High School Diploma/GED Difficulty w/ Childcare or Family Care: No Living arrangements: alone Gender identity (if verbalized by the patient): Male Spiritual care concerns: No Exam Narrative: GENERAL: Well-developed, well-nourished, and in no acute distress. HEAD: Normocephalic, atraumatic. EYES: PERRLA and EOMI. CHEST: Clear to auscultation. No respiratory distress. No wheezes rales or rhonchi HEART: Regular rate and rhythm. No murmur heard. Normal peripheral pulses. ABDOMEN: Soft, tender to palpation in the suprapubic region and left upper quadrant with rebound though no guarding, nondistended, normal active bowel sounds. Left CVA tender
[2023-09-04] MEDS: SODIUM CHLORIDE 0.9% IV 1,000 ML 999 ML IV CONT (07:53)
[2023-09-04] MEDS: MORPHINE SULFATE (*CRX) 4 MG/ML INJ IV PUSH (07:53)
== END 2023-09-04 09:42 | disposition home or self-care (01) ==
PROVIDERS: Emergency Medicine; Emergency Provider Preventive Medicine Aerospace Medicine; PCP Nurse Practitioner Family
DX: N13.2 Hydronephrosis with renal and ureteral calculous obstruction (principal); E78.00 Pure hypercholesterolemia, unspecified; N40.0 Benign prostatic hyperplasia without lower urinary tract symptoms; M17.0 Bilateral primary osteoarthritis of knee; Z85.46 Personal history of malignant neoplasm of prostate; Z92.21 Personal history of antineoplastic chemotherapy; Z87.891 Personal history of nicotine dependence; K76.0 Fatty (change of) liver, not elsewhere classified; R93.41 Abnormal radiologic findings on diagnostic imaging of renal pelvis, ureter, or bladder
CPT/HCPCS: 36415; 74177; 80053; 81001; 83690; 85025; 96361; 96374; 96375; 99284; J2270; J2405; J7030; Q9967

== ENCOUNTER 2023-10-24 09:18 | Outpatient (CLI) | payer OTHER, SELFPAY ==
[2023-10-24 09:43] LABS: Basophils Percent Auto 0.5 % (0.2-1.2); Eosinophils Absolute Auto 0.1 K/mm3 (0-0.3); Hematocrit 37.6 % (42.0-52.0); Hemoglobin 11.8 g/dL (14.0-18.0); Lymphocytes Absolute Auto 0.87 K/mm3 (0.9-3.2); Lymphocytes Percent Auto 23.7 % (18.3-44.2); Mean Corpuscular HGB Conc 31.4 g/dl (32-36); Mean Corpuscular Hemoglobin 25.3 pg (26-34); Mean Corpuscular Volume 80.5 fl (80-100); Mean Platelet Volume 9.6 fl (7.4-10.4); Monocytes Absolute Auto 0.4 K/mm3 (0.1-0.6); Monocytes Percent Auto 10.9 % (2.6-8.5); Neutrophils Absolute Auto 2.3 K/mm3 (1.3-6.7); Neutrophils Percent Auto 61.9 % (45.5-73.1); Platelet Count Result 148 k/mm3 (150-375); Red Blood Count 4.67 M/mm3 (4.6-6.20); Red Cell Distribution Width 16.7 % (11.5-14.5); White Blood Count 3.7 K/mm3 (4.5-10.0)
[2023-10-24 09:55] LABS: Alanine Aminotransferase 90 U/L (6-50); Albumin Level 4.6 g/dL (3.5-5.1); Alkaline Phosphatase 70 U/L (38-126); Anion Gap 6 mmol/L (4-12); Aspartate Amino Transferase 68 U/L (17-59); Bilirubin,Total 0.6 mg/dL (0.2-1.3); Blood Urea Nitrogen 17 mg/dL (9-20); Calcium 9.3 mg/dL (8.4-10.2); Carbon Dioxide 25 mmol/L (22-30); Chloride 109 mmol/L (98-107); Estimated Glomerular Filt Rate > 60; Glucose 137 mg/dL (65-110); Potassium 4.5 mmol/L (3.4-5.0); Sodium 140 mmol/L (137-145)
[2023-10-24 10:02] LABS: Iron 65 ug/dL (49-181)
[2023-10-24 10:07] LABS: Hemoglobin A1C 6.4 % (<5.7)
[2023-10-24 10:21] LABS: Percent Iron Saturation 14 % (20-50)
[2023-10-24 11:01] LABS: Folic Acid 5.5 ng/mL (2.76->20)
[2023-10-28 09:53] LABS: Vitamin B1 7 nmol/L (8-30)
== END 2023-10-24 09:19 | disposition home or self-care (01) ==
LOC: ANHLAB 09:19
PROVIDERS: PCP Nurse Practitioner Family; Visit Provider Nurse Practitioner Family
DX: D64.9 Anemia, unspecified (principal); E53.8 Deficiency of other specified B group vitamins; E61.1 Iron deficiency; I10 Essential (primary) hypertension; R73.03 Prediabetes; R73.9 Hyperglycemia, unspecified
CPT/HCPCS: 36415; 80053; 82607; 82746; 83036; 83540; 83550; 84425; 85025

== ENCOUNTER 2024-05-04 08:05 | Outpatient (CLI) | payer OTHER, SELFPAY ==
[2024-05-04 08:35] LABS: Basophils Percent Auto 0.2 % (0.2-1.2); Eosinophils Absolute Auto 0.1 K/mm3 (0-0.3); Eosinophils Percent Auto 2.5 % (0-4.4); Hematocrit 38.7 % (42.0-52.0); Hemoglobin 12.8 g/dL (14.0-18.0); Immature Granulocyte Absolute 0.03 K/mm3 (0.00-0.031); Immature Granulocyte Percent A 0.6 % (0-0.5); Lymphocytes Absolute Auto 1.18 K/mm3 (0.9-3.2); Lymphocytes Percent Auto 24.3 % (18.3-44.2); Mean Corpuscular HGB Conc 33.1 g/dl (32-36); Mean Corpuscular Hemoglobin 27.9 pg (26-34); Mean Corpuscular Volume 84.3 fl (80-100); Mean Platelet Volume 9.7 fl (7.4-10.4); Monocytes Absolute Auto 0.5 K/mm3 (0.1-0.6); Monocytes Percent Auto 10.9 % (2.6-8.5); Neutrophils Percent Auto 61.5 % (45.5-73.1); Platelet Count Result 181 k/mm3 (150-375); Red Blood Count 4.59 M/mm3 (4.6-6.20); Red Cell Distribution Width 15.5 % (11.5-14.5); White Blood Count 4.9 K/mm3 (4.5-10.0)
[2024-05-04 08:47] LABS: Alanine Aminotransferase 51 U/L (6-50); Albumin Level 4.1 g/dL (3.5-5.1); Alkaline Phosphatase 68 U/L (38-126); Anion Gap 6 mmol/L (4-12); Aspartate Amino Transferase 38 U/L (17-59); Bilirubin,Total 0.5 mg/dL (0.2-1.3); Blood Urea Nitrogen 19 mg/dL (9-20); Calcium 9.2 mg/dL (8.4-10.2); Carbon Dioxide 28 mmol/L (22-30); Chloride 107 mmol/L (98-107); Estimated Glomerular Filt Rate > 60; Glucose 97 mg/dL (65-110); Sodium 141 mmol/L (137-145)
[2024-05-04 09:30] LABS: Iron 80 ug/dL (49-181)
[2024-05-04 09:41] LABS: Percent Iron Saturation 19 % (20-50)
[2024-05-04 10:09] LABS: Folic Acid 4.1 ng/mL (2.76->20)
[2024-05-04 10:27] LABS: Hemoglobin A1C 6.7 % (<5.7)
[2024-05-08 16:09] LABS: Vitamin B1 13 nmol/L (8-30)
== END 2024-05-04 08:06 | disposition home or self-care (01) ==
PROVIDERS: PCP Nurse Practitioner Family; Visit Provider Nurse Practitioner Family
DX: D64.9 Anemia, unspecified (principal); E53.8 Deficiency of other specified B group vitamins; J43.9 Emphysema, unspecified; C61 Malignant neoplasm of prostate; R73.03 Prediabetes
CPT/HCPCS: 36415; 80053; 82607; 82746; 83036; 83540; 83550; 84207; 84425; 85025

== ENCOUNTER 2024-08-25 09:42 | Outpatient (CLI) | payer OTHER, SELFPAY ==
--- OUTSIDE RECORDS SUMMARY | 2024-08-25 09:44 | XMS_ITS | Clinical Summary ---
Author Organization [facility] Address [address] [place] [address] Phone Care Team Providers Care Metal Miner Name Role Phone Unavailable Primary Care Provider Unavailabl e Social History Tobacco Use Types Packs/Day Years Used Date Smoking Tobacco: Never Assessed Sex and Gender Information Value Date Recorded Sex Assigned at Not on file Legal Sex Male 10:15 AM CDT Gender Identity Not on file Sexual Orientation Not on file Plan of Treatment Health Maintenance Due Date Last Done Comments DTAP/TDAP/TD VACCINES (1 - Tdap) 09/07/1978 COLORECTAL SCREENING 09/07/2004 Colorectal Cancer Screening 09/07/2004 FIT-DNA Q 3 years 09/07/2004 FIT/FOBT Q 1 year 09/07/2004 Flex Sig/CT Colonography Q 5 years 09/07/2004 ZOSTER VACCINE (1 of 2) 09/07/2009 INFLUENZA VACCINE (#1) 2023 RSV VACCINE (60+ or ) (1 - 1-dose 75+ series) 09/07/2034 PNEUMOCOCCAL VACCINE 0-49 YEARS Aged Out No longer eligible based on patient's age to complete this topic
[2024-08-25 10:30] LABS: Alanine Aminotransferase 62 U/L (6-50); Albumin Level 4.4 g/dL (3.5-5.1); Alkaline Phosphatase 59 U/L (38-126); Anion Gap 9 mmol/L (4-12); Aspartate Amino Transferase 42 U/L (17-59); Bilirubin,Total 0.7 mg/dL (0.2-1.3); Blood Urea Nitrogen 16 mg/dL (9-20); Calcium 9.1 mg/dL (8.4-10.2); Carbon Dioxide 25 mmol/L (22-30); Chloride 106 mmol/L (98-107); Estimated Glomerular Filt Rate > 60; Glucose 105 mg/dL (65-110); Potassium 4.3 mmol/L (3.4-5.0); Sodium 140 mmol/L (137-145)
[2024-08-25 10:55] LABS: Hemoglobin A1C 6.2 % (<5.7)
== END 2024-08-25 09:43 | disposition home or self-care (01) ==
PROVIDERS: PCP Nurse Practitioner Family; Visit Provider Nurse Practitioner Family
DX: R73.03 Prediabetes (principal); I10 Essential (primary) hypertension; E53.8 Deficiency of other specified B group vitamins; K62.5 Hemorrhage of anus and rectum; D64.9 Anemia, unspecified; C61 Malignant neoplasm of prostate
CPT/HCPCS: 36415; 80053; 83036

== ENCOUNTER 2024-11-26 14:26 | Outpatient (CLI) | payer OTHER, SELFPAY ==
--- NOTE | ~2024-11-26 | XR_ITS ---
XR hand BI arthritis min 3V 11/26/2024 14:49 Indication: Finger pain Procedure: 4 views each hand Comparison: No prior studies for comparison. Findings: Right: There is polyarticular osteoarthritis, moderate in the triscaphe and first carpal metacarpal j oints with mild polyarticular osteoarthritis of the first MCP joint and interphalangeal joints. No fr acture or traumatic malalignment. No lytic changes. No focal soft tissue abnormality. No foreign bodi es. Left: There is moderate osteoarthritis of the first carpal metacarpal joint. There is mild osteoarthr itis of the first MCP and interphalangeal joints. No acute fracture or traumatic malalignment. Mild o steoarthritis of the triscaphe joint. No focal soft tissue abnormality. No erosive changes or foreign bodies. Impression: 1: Bilateral polyarticular osteoarthritis, most advanced bilaterally and the first carpal metacarpal joints. Reviewed, dictated and finalized at location B. Impression: 1: Bilateral polyarticular osteoarthritis, most advanced bilaterally and the fi rst carpal metacarpal joints.
--- OUTSIDE RECORDS SUMMARY | 2024-11-26 14:29 | XMS_ITS | Clinical Summary ---
Author Organization [facility] Address [address] [place] [address] Phone Care Team Providers Care Polish Compounder Name Role Phone Unavailable Primary Care Provider [...] Flex Sig/CT Colonography Q 5 years 09/07/2004 PNEUMOCOCCAL VACCINE 50+ YEARS (1 of 1 - PCV) 09/08/19 10 ZOSTER VACCINE (1 of 2) 09/07/2009 INFLUENZA VACCINE (#1) 2024 RSV VACCINE (60+ or ) (1 - 1-dose 75+ series) 09/07/2034
[2024-11-26 16:02] LABS: Hematocrit 35.6 % (42.0-52.0); Hemoglobin 11.9 g/dL (14.0-18.0); Immature Granulocyte Percent A 0.3 % (0-0.5); Lymphocytes Absolute Auto 1.11 K/mm3 (0.9-3.2); Mean Corpuscular HGB Conc 33.4 g/dl (32-36); Mean Corpuscular Hemoglobin 29.5 pg (26-34); Mean Corpuscular Volume 88.1 fl (80-100); Nucleated Red Blood Cells Absolute Auto 0.000 K/mm3 (0.0-0.012); Nucleated Red Blood Cells Perc 0.0 % (0.0-0.2); Platelet Count Result 169 k/mm3 (150-375); Red Blood Count 4.04 M/mm3 (4.6-6.20); White Blood Count 4.0 K/mm3 (4.5-10.0)
[2024-11-26 16:17] LABS: Hemoglobin A1C 5.7 % (<5.7)
[2024-11-26 16:39] LABS: Iron 45 ug/dL (49-181)
[2024-11-26 16:42] LABS: Alanine Aminotransferase 59 U/L (6-50); Albumin Level 4.3 g/dL (3.5-5.1); Alkaline Phosphatase 55 U/L (38-126); Anion Gap 8 mmol/L (4-12); Aspartate Amino Transferase 45 U/L (17-59); Bilirubin,Total 0.5 mg/dL (0.2-1.3); Blood Urea Nitrogen 15 mg/dL (9-20); Calcium 9.1 mg/dL (8.4-10.2); Carbon Dioxide 26 mmol/L (22-30); Chloride 106 mmol/L (98-107); Cholesterol 149 mg/dL (0-200); Estimated Glomerular Filt Rate > 60; Glucose 119 mg/dL (65-110); HDL Direct 35 mg/dL; Potassium 4.4 mmol/L (3.4-5.0); Sodium 140 mmol/L (137-145); Total Protein 7.4 g/dL (6.3-8.2); Triglycerides 225 mg/dL (<150)
[2024-11-26 16:43] LABS: Percent Iron Saturation 10 % (20-50)
[2024-11-26 17:14] LABS: Ferritin 8.92 ng/mL (11.1-264)
[2024-11-26 17:17] LABS: Thyroid Stimulating Hormone 0.235 uIU/mL (0.465-4.680)
[2024-11-26 17:53] LABS: Vitamin B12 194.0 pg/mL (239-931)
== END 2024-11-26 14:27 | disposition home or self-care (01) ==
LOC: ANHIMG 14:27
PROVIDERS: PCP Nurse Practitioner Family; Visit Provider Nurse Practitioner Family
DX: M19.042 Primary osteoarthritis, left hand (principal); M19.041 Primary osteoarthritis, right hand; I10 Essential (primary) hypertension; E11.9 Type 2 diabetes mellitus without complications; E53.8 Deficiency of other specified B group vitamins; D64.9 Anemia, unspecified; E61.1 Iron deficiency; J43.9 Emphysema, unspecified
CPT/HCPCS: 36415; 73130; 80053; 80061; 82607; 82728; 82746; 83036; 83540; 83550; 84443; 85025

== ENCOUNTER 2025-03-18 11:07 | Outpatient (CLI) | payer OTHER, SELFPAY ==
[2025-03-18 11:20] LABS: Hematocrit 23.9 % (42.0-52.0); Immature Granulocyte Percent A 0.2 % (0-0.5); Lymphocytes Absolute Auto 1.02 K/mm3 (0.9-3.2); Mean Corpuscular HGB Conc 27.6 g/dl (32-36); Mean Corpuscular Hemoglobin 19.3 pg (26-34); Mean Corpuscular Volume 69.9 fl (80-100); Nucleated Red Blood Cells Absolute Auto 0.000 K/mm3 (0.0-0.012); Nucleated Red Blood Cells Perc 0.0 % (0.0-0.2); Platelet Count Result 177 k/mm3 (150-375); Red Blood Count 3.42 M/mm3 (4.6-6.20); White Blood Count 4.1 K/mm3 (4.5-10.0)
[2025-03-18 11:22] LABS: Hemoglobin 6.6 g/dL (14.0-18.0)
[2025-03-18 11:25] LABS: Schistocytes None Seen
[2025-03-18 11:27] LABS: Anisocytosis 1+; Hypochromasia 1+; Ovalocytes 1+
[2025-03-18 16:29] LABS: Alanine Aminotransferase 54 U/L (6-50); Albumin Level 4.5 g/dL (3.5-5.1); Alkaline Phosphatase 64 U/L (38-126); Anion Gap 8 mmol/L (4-12); Aspartate Amino Transferase 61 U/L (17-59); Bilirubin,Total 0.5 mg/dL (0.2-1.3); Blood Urea Nitrogen 18 mg/dL (9-20); Calcium 8.9 mg/dL (8.4-10.2); Carbon Dioxide 22 mmol/L (22-30); Chloride 106 mmol/L (98-107); Estimated Glomerular Filt Rate > 60; Glucose 120 mg/dL (65-110); Potassium 4.1 mmol/L (3.4-5.0); Sodium 136 mmol/L (137-145); Total Protein 7.7 g/dL (6.3-8.2)
[2025-03-18 16:33] LABS: Iron 25 ug/dL (49-181)
[2025-03-18 16:47] LABS: Percent Iron Saturation 5 % (20-50)
[2025-03-18 17:15] LABS: Ferritin 5.06 ng/mL (11.1-264)
[2025-03-18 17:40] LABS: Vitamin B12 188.0 pg/mL (239-931)
== END 2025-03-18 11:08 | disposition home or self-care (01) ==
PROVIDERS: PCP Nurse Practitioner Family; Visit Provider Internal Medicine Hematology & Oncology
DX: D64.9 Anemia, unspecified (principal)
CPT/HCPCS: 36415; 80053; 82607; 82728; 82746; 83540; 83550; 84238; 85025; 86850; 86900; 86901; 86923

== ENCOUNTER 2025-04-01 08:19 | Outpatient (CLI) | payer OTHER, SELFPAY ==
[2025-04-01 08:33] LABS: Hematocrit 29.7 % (42.0-52.0); Hemoglobin 8.6 g/dL (14.0-18.0); Immature Granulocyte Percent A 0.5 % (0-0.5); Lymphocytes Absolute Auto 0.83 K/mm3 (0.9-3.2); Mean Corpuscular HGB Conc 29.0 g/dl (32-36); Mean Corpuscular Hemoglobin 20.7 pg (26-34); Mean Corpuscular Volume 71.6 fl (80-100); Nucleated Red Blood Cells Absolute Auto 0.000 K/mm3 (0.0-0.012); Nucleated Red Blood Cells Perc 0.0 % (0.0-0.2); Platelet Count Result 227 k/mm3 (150-375); Red Blood Count 4.15 M/mm3 (4.6-6.20); White Blood Count 4.1 K/mm3 (4.5-10.0)
[2025-04-01 08:38] LABS: Anisocytosis 1+; Hypochromasia 1+; Ovalocytes 1+; Schistocytes None Seen
[2025-04-01 12:43] LABS: Ferritin 11.80 ng/mL (11.1-264)
[2025-04-01 13:28] LABS: Iron 293 ug/dL (49-181)
[2025-04-01 13:38] LABS: Percent Iron Saturation 56 % (20-50)
== END 2025-04-01 08:20 | disposition home or self-care (01) ==
LOC: ANHLAB 08:20
PROVIDERS: PCP Nurse Practitioner Family; Visit Provider Internal Medicine Hematology & Oncology
DX: D64.9 Anemia, unspecified (principal); K64.9 Unspecified hemorrhoids
CPT/HCPCS: 36415; 82728; 83090; 83540; 83550; 85025

== ENCOUNTER 2025-05-06 10:10 | Outpatient (CLI) | payer OTHER, SELFPAY ==
[2025-05-06 10:35] LABS: Hematocrit 27.0 % (42.0-52.0); Hemoglobin 7.6 g/dL (14.0-18.0); Mean Corpuscular HGB Conc 28.1 g/dl (32-36); Mean Corpuscular Hemoglobin 20.1 pg (26-34); Mean Corpuscular Volume 71.4 fl (80-100); Platelet Count Result 187 k/mm3 (150-375); Red Blood Count 3.78 M/mm3 (4.6-6.20); White Blood Count 3.6 K/mm3 (4.5-10.0)
--- OUTSIDE RECORDS SUMMARY | 2025-05-06 11:37 | XMS_ITS | Clinical Summary ---
Author Organization [facility] Address [address] [place] [address] Phone Care Team Providers Care Baler Name Role Phone Unavailable Primary Care Provider Unavailabl e Allergies No known active allergies Medications mecobalamin, vitamin B12, 500 mcg Tablet, Chewable Take by mouth. Activ e albuterol sulfate 90 mcg/Actuation inhaler Take 2 Puffs by inhalation every 6 hours as needed for Shortness of Breath. Active dextromethorpha n-guaiFENesin (MUCINEX DM) 30-600 mg Tablet Sustained Release 12HR Take 1 Tablet by mouth every 12 hours. Active etodolac (LODINE) 500 mg tablet Take 500 mg by mouth 2 times daily. Active fluticasone propionate (FLONASE) 50 mcg/spray [place], Suspension nasal inhaler Administer 2 Sprays in each nostril daily. Active ferrous sulfate 325 mg (65 mg iron) tablet Take 325 mg by mouth daily. Active Trelegy Ellipta 100-62.5-25 mcg Disk with Device Take 1 Puff by inhalation daily. Active Active Problems No known active problems Encounters Date Type Department Care Team Description 04/08/2025 4:30 PM MULTIMEDIA DEVELOPER Telephone Check Up [facility] Oncology and Hematology - [address] [place] [address] Lamin Sanford MD Chronic anemia (Primary Dx) 03/28/2025 4:00 PM MULTIMEDIA DEVELOPER Telephone Check Up [facility] H[facility]ology [address] [place] [address] Leila Lr MD Chronic anemia (Primary Dx); Acute hemorrhoid 03/27/2025 Abstract [facility] Oncology and Hematology - [address] [place] [address] Lamin Sanford MD 03/22/2025 Orders Only [facility] Oncology and Hematology - [address] [place] [address] Lamin Sanford MD 03/21/2025 Orders Only [facility] On[facility] and Hematology - [place] [address] [place] [address] Lamin Sanford MD 03/20/2025 Orders Only [facility] On[facility] and Hematology - [place] [address] [place] [address] Lamin Sanford MD 03/19/2025 External Device Data STL ABSTRACTION Provider, Abstract 03/19/2025 External Device Data [facility] ABSTRACTION Provider, Abstract 03/19/2025 External Device Data ST[facility] ABSTRACTION Provider, Abstract 03/19/2025 External Device Data STL ABSTRACTION Provider, Abstract 03/18/2025 10:30 AM MULTIMEDIA DEVELOPER Office Visit [facility] On[facility] and Hematology - [address] Lamin Sanford MD Chronic anemia (Primary Dx); Acute hemorrhoid 03/18/2025 Telephone [facility] Oncology and Hematology - [address] Lamin Sanford MD Lab Results 03/18/2025 Orders Only [facility] Oncology and Hematology - [place] [address] Lamin Sanford MD Chronic anemia (Primary Dx) from Last 3 Months Family History Medical History Relation Name Comments No Known Problems Brother 1 No Known Problems Brother 2 No Known Problems Brother 3 No Known Problems Child 1 No Known Problems Child 2 No Known Problems Child 3 No Known Problems Child 4 Heart Attack Father Breast Cancer Mother No Known Problems Sister 1 No Known Problems Sister 2 Relation Name Status Comments Brother 1 Alive Brother 2 Alive Brother 3 Alive Child 1 Alive Child 2 Alive Child 3 Alive Child 4 Alive Father Mother Alive Sister 1 Alive Sister 2 Alive Social History Tobacco Use Types Packs/Day Years Used Date Smoking Tobacco: Former Cigarettes 1 23.8 0 05/16/1983 - 03/18/2007 Smokeless Tobacco: Never Alcohol Use Standard Drinks/Week Comments Yes 0 (1 standard drink = 0.6 oz pur e alcohol) Socially Sex and Gender Information Value Date Recorded Sex Assigned at Not on file Legal Sex Male 10:15 AM CDT Gender Identity Not on file Sexual Orientation Not on file Last Filed Vital Signs Vital Sign Reading Time Taken Comments Blood Pressure 136/88 03/18/2025 10:22 AM MULTIMEDIA DEVELOPER Pulse 77 03/18/2025 10:22 AM MULTIMEDIA DEVELOPER Temperature 36.3 C (97.4 F) 03/18/2025 10:22 AM MULTIMEDIA DEVELOPER Respiratory Rate 15 03/18/2025 10:2 2 AM MULTIMEDIA DEVELOPER Oxygen Saturation 97% 03/18/2025 10: 22 AM MULTIMEDIA DEVELOPER Inhaled Oxygen Concentration - - Weight 109.5 kg (241 lb 6.4 oz) 025 10:22 AM MULTIMEDIA DEVELOPER Height 185.4 cm (6' 1) 03/18/2025 10:2 2 AM MULTIMEDIA DEVELOPER Body Mass Index 31.85 03/18/2025 10:22 AM MULTIMEDIA DEVELOPER Plan of Treatment Upcoming Encounters Date Type Department Care Team (Late st Contact Info) Description 05/27/2025 2:30 PM MULTIMEDIA DEVELOPER Office Visit [facility] Oncology and Hematology - [place] [address] [facility] [address] [place] [address] Lamin Sanford MD [address] [facility] [address] [place] [address] Health Maintenance Due Date Last Done Comments Pre-Diabetes and Diabetes Screening 1959 DTAP/TDAP/TD VACCINES (1 - Tdap) 09/07/1978 COLORECTAL SCREENING 09/07/2004 Colorectal Cancer Screening 09/07/2004 FIT-DNA Q 3 years 09/07/2004 FIT/FOBT Q 1 year 09/07/2004 Flex Sig/CT Colonography Q 5 years 09/07/2004 PNEUMOCOCCAL VACCINE 50+ YEARS (1 of 1 - PCV) 09/08/19 10 ZOSTER VACCINE (1 of 2) 09/07/2009 Preventative Visit- Commercial 05/16/2024 Abdominal Aortic Aneurysm (AAA) Screening 09/07/2024 INFLUENZA VACCINE (#1) 2024 RSV VACCINE (60+ or ) (1 - 1-dose 75+ series) 09/07/2034 Procedures Procedure Name Priority Date/Time Associated Diagnosis Comments COMPREHENSIVE METABOLIC PANEL Routine 03/18/2025 3:04 PM MULTIMEDIA DEVELOPER CHG SOLUBLE TRANSFERRIN RECEPTOR Routine 03/18/2025 1:32 PM MULTIMEDIA DEVELOPER CBC WITH AUTODIFFERENTIAL Routine 2024 12:34 PM MULTIMEDIA DEVELOPER from Last 3 Months Results * COMPREHENSIVE METABOLIC PANEL (03/18/2025 3:04 PM MULTIMEDIA DEVELOPER) Blood us Lamin Sanford MD CHEMISTRY ORDERABLES Final Resu lt * CHG SOLUBLE TRANSFERRIN RECEPTOR (03/18/2025 1:32 PM MULTIMEDIA DEVELOPER) us Lamin Sanford MD CHG - LABORATORY Final Result * CBC WITH AUTODIFFERENTIAL (03/18/2025 12:34 PM MULTIMEDIA DEVELOPER) Blood us Lamin Sanford MD HEMATOLOGY ORDERABLES Final Res ult from Last [address] [facility] CHOICE [id number] * Guarantor: [employer] ACCT-OCC [facility]UPATIONAL [facility] (OM) Account Type Relation to Patient Date of Phone Billing Address Corporate Employer [id number] [address] [address]
[2025-05-06 11:41] LABS: Iron 29 ug/dL (49-181)
[2025-05-06 11:50] LABS: Percent Iron Saturation 6 % (20-50)
[2025-05-06 12:22] LABS: Ferritin 19.70 ng/mL (11.1-264)
[2025-05-06 12:35] LABS: Vitamin B12 208.0 pg/mL (239-931)
== END 2025-05-06 10:11 | disposition home or self-care (01) ==
LOC: ANHLAB 10:10
PROVIDERS: PCP Nurse Practitioner Family; Visit Provider Internal Medicine Hematology & Oncology
DX: D64.9 Anemia, unspecified (principal)
CPT/HCPCS: 36415; 82607; 82728; 83540; 83550; 85027